=== PATIENT | male | born 1930 | race Caucasian/White ===

== ENCOUNTER 2018-11-14 20:41 | Inpatient (IN) | payer MEDICARE, BC ==
[~2018-11-14] VITALS: Ht 182.9 cm; Wt 86.8 kg
--- NOTE | ~2018-11-14 | HEMODYNAMI ---
PATIENT:NEVILLE BECKETT MEDICAL RECORD: [id number] : [birth year] [id number] ADMISSION DATE: 11/15/18 Generatedon:11/18/20188:55 Patient name: NEVILLE BECKETT Patient #: [id number] : 1930 Date of study: 11/18/2018 Page: Of Hemodynamic Procedure Report Patient Data Patient Demographics Procedure consent was obtained First Name: NEVILLE Gender: Male Last Name: SUJIT : 1930 [facility] Initial: Kristine Age: 88 year(s) Patient #: [id number] Race: SSN: [id number] Additional ID: [id number] Contact details Address: On license of [facility] [address]A OLSON State: [place] City: [place] Zip code: [address] Past Medical History Allergies: No known allergies Admission Admission Data Admission Date: 11/15/2018 Admission Time: 16:38 Room #: D.2119 Height (in.): 72.05 BSA: 2.07 (m2) Height (cm.): 183 BMI: 25.38 (kg/m2) Weight (lbs.): 187.39 Weight (kg.): 85 Lab Results Lab Result Date: 11/18/2018 Lab Result Time: 0:00 Biochemistry Name Units Result Min Max BUN mg/dl 31 --(----)-* 7 18 Creatinine mg/dl 1.2 --(---*)-- 0.6 1.3 eGFR ml/min 61.06613 *-(----)-- 90 120 NONAFRICAN CBC Name Units Result Min Max Hematocrit % 35 *-(----)-- 42 54 Hemoglobin g/dl 12 *-(----)-- 13.5 17.5 Procedure Procedure Types Cath Procedure Diagnostic Procedure [facility] w/Coronaries Sedation Charges Moderate Sedation up to 30 minutes PCI Procedure Coronary Stent Coronary Stent Initial Procedure Description Procedure Date Procedure Date: 11/18/2018 Procedure Start Time: 8:15 Procedure End Time: 8:50 Procedure Staff Name Function Aidan Hay MD Performing Physician Tracy Tejeda RT Monitor Dandy Drummond RT Scrub Helene Humphrey RT Scrub Vik Rodriguez RN Nurse Procedure Data Cath Procedure Fluoroscopy Diagnostic fluoroscopy Total fluoroscopy Time: 8.2 time: 8.2 min min Diagnostic fluoroscopy Total fluoroscopy dose: dose: 1309 mGy 1309 mGy Contrast Material Contrast Material Type Amount (ml) Isovue 300 149 Entry Location Entry Primary Successful Side Size Upsize Upsize Entry Closure Succes sful Closure Location (Fr) 1 (Fr) 2 (Fr) Remarks Device Remarks Femoral Right 5 Fr 6 Fr Exoseal artery Short Estimated blood loss: 10 ml Diagnostic catheters Device Type Used For End Catheter Placement MULTIPACK JL 4.0 5Fr Procedure catheter MULTIPACK 3DRC 5Fr Procedure catheter MULTIPACK Pigtail 5 Fr Procedure catheter Procedure Complications No complications Procedure Medications Medication Administration Route Dosage Oxygen etCO2 Nasal cannula 2 l/min Lidocaine 2% added to field 20 Heparin Flush Bag added to field 2 bags (1000units/500ml NS) 0.9% NaCl I.V. 100 ml/hr Versed I.V. 1 mg Fentanyl I.V. 50 mcg Fentanyl I.V. 50 mcg Heparin Bolus I.V. 8500 units Versed I.V. 1 mg Plavix P.O. 600 mg Hemodynamics Rest BSA: 2.07 (m2) HGB: 12 (g/dl) O2 Consumption: Estimated: 231.02 (ml/min) O2 Cons umption indexed: Estimated:111.6 (ml/min/m) Heart Rate: 66 (bpm) Pressure Samples Time Site Value (mmHg) Purpose Heart Use Rate(bpm) 8:23 LV 170/5,16 Snapshot 80 8:23 LV 163/15,17 Snapshot 77 8:23 AO 187/69(110) Pullback 53 8:23 LV 179/8,25 Pullback 53 Gradients Valve Time Site 1 Site 2 Mean SEP/DFP Peak To Heart Use (mmHg) (sec/min) Peak Rate (mmHg) (bpm) Aortic 8:23 LV AO 0 4 0 53 179/8,25 187/69(110) Calculations Valve P-P Mean Valve Index Valve Source Name Gradient Area Flow (cm2) Aortic 0 0 0 0 Snapshots Pre Cath Intra NCS Post Cath Vital Signs Time Heart Resp SPO2 etCO2 NIBP (mmHg) Rhythm Pain Sedation Rate (ipm) (%) (mmHg) Status Level (bpm) 8:01:27 54 14 93 17.2 177/89(158) NSR 0 (11) 10(A) , No pain 8:05:57 54 13 98 0 183/78(158) NSR 0 (11) 10(A) , No pain 8:10:25 56 13 92 0 158/81(141) NSR 0 (11) 10(A) , No pain 8:14:47 57 12 92 13.4 158/74(130) NSR 0 (11) 10(A) , No pain 8:19:55 56 9 94 10.4 154/81(136) NSR 0 (11) 10(A) , No pain 8:25:08 54 16 93 17.9 173/74(143) NSR 0 (11) 9(A) , No pain 8:30:21 57 10 95 0 170/73(146) NSR 0 (11) 9(A) , No pain 8:34:50 53 10 88 10.4 140/68(129) NSR 0 (11) 9(A) , No pain 8:39:06 53 11 90 15.7 147/76(129) NSR 0 (11) 10(A) , No pain 8:43:13 53 15 92 11.2 135/72(120) NSR 0 (11) 10(A) , No pain 8:48:29 52 29 96 19.4 172/84(151) NSR 0 (11) 10(A) , No pain Medications Time Medication Route Dose Verified Delivered Reason Notes Effectiveness by by 8:03:03 Oxygen etCO2 2 Aidan Buffie used for Nasal l/min Satnam Rodriguez RN procedure cannula 8:06:09 Lidocaine 2% added 20ml Aidan Aidan for local to vial Satnam Hay MD anesthetic field 8:06:20 Heparin Flush added 2 Aidan Aidan used for Bag to bags Satnam Hay MD procedure (1000units/500ml field NS) 8:06:57 0.9% NaCl I.V. 100 Aidan Buffie Per physician ml/hr Satnam Rodriguez RN 8:09:32 Versed I.V. 1 mg Aidan Buffie for sedation Satnam Rodriguez RN 8:09:38 Fentanyl I.V. 50 Aidan Buffie for sedation mcg Satnam Rodriguez RN 8:16:53 Fentanyl I.V. 50 Aidan Buffie for sedation mcg Satnam Rodriguez RN 8:28:51 Heparin Bolus I.V. 8500 Aidan Buffie for verifi ed units Satnam Rodriguez RN anticoagulation with dr hay 8:31:43 Versed I.V. 1 mg Aidan Buffie for sedation Satnam Rodriguez RN 8:51:36 Plavix P.O. 600 Aidan Buffie for mg Satnam Rodriguez RN antiplatelet therapy Procedure Log Time Note 7:05:50 Informed consent obtained and on chart 7:33:06 Signed procedure consent form obtained from patient. 7:33:08 Procedure Status Urgent Heart Cath (IP). 7:33:10 Time tracking: Regular hours (M-F 7:00 - 5:00) 7:33:13 Plan of Care:Hemodynamics will remain stable., Cardiac rhythm will remain stable., Comfort level will be maintained., Respiratory function will remain adequate., Patient/ family verbilizes understanding of procedure., Procedure tolerated without complication., Recovers from procedure without complications.. 7:37:30 Patient Weight : 187.39 lbs 7:37:34 Patient Height : 72.05 inches 7:37:39 Vik Rodriguez RN sent for patient. Start room use. 7:53:05 Patient received from Med II to CCL 1 Alert and oriented. Tansferred to table in Supine position. 7:53:10 Warm blankets applied, and ara hugger turned on for patient comfort. 7:53:10 ECG and BP/O2 sat monitors applied to patient. 7:53:11 Correct patient and procedure confirmed by team. 7:55:00 Patient allergic to No known allergies 7:55:43 Lab Result : BUN 31 mg/dl 7:55:43 Lab Result : Creatinine 1.2 mg/dl 7:55:43 Lab Result : eGFR NONAFRICAN 61.36108 ml/min 7:55:43 Lab Result : Hemoglobin 12 g/dl 7:55:43 Lab Result : Hematocrit 35 % 8:00:16 Vital chart was started 8:00:18 Baseline sample Acquired. 8:00:24 Rhythm: sinus bradycardia 8:00:25 Full Disclosure recording started 8:00:26 Pre-procedure instructions explained to patient. 8:00:26 Pre-op teaching completed and patient verbalized understanding. 8:00:27 Family unavailable. 8:00:29 Patient NPO since Midnight. 8:00:31 Is patient on blood thinner?No 8:00:33 Patient diabetic? Yes. 8:00:34 If diabetic: On Metformin? No 8:00:37 Previous problem with sedation/anesthesia? No ? 8:00:38 Snore? Yes 8:00:39 Sleep apnea? No 8:00:40 Deviated septum? No 8:00:48 Opens mouth fully? No 8:00:49 Sticks out tongue? Yes 8:00:59 Airway obstruction? Yes HX OF LUNG CANCER 8:01:01 Dentures? No ? 8:01:05 Pre procedure: right dorsailis pedis pulse 1+ Palpable, but thready & weak; easily obliterated 8:01:17 Patient pain scale 0/10 ?. 8:01:25 IV patent on arrival in right wrist with 0.9% NaCl at KVO. 8:01:36 IV right wrist D/C'd due to infiltration. 8:01:53 IV started by Vik Rodriguez RN inleft hand with a 22 gauge IV catheter with 0.9% NaCl at KVO. 8:01:55 Lab results completed and on chart. 8:01:58 Right groin area was prepped with chlora-prep and draped in sterile fashion 8:02:01 Alarms reviewed by R. N. 8:02:02 Sharps counted by scrub and verified by R.N. 8:03:03 Oxygen 2 l/min etCO2 Nasal cannula was administered by Vik Rodriguez RN; used for procedure; 8:03:24 Use device set Femoral Dx 8:03:25 ACIST Syringe (82872) opened to sterile field. 8:03:25 Bag Decanter () opened to sterile field. 8:03:27 ACIST Hand Control (36925) opened to sterile field. 8:03:28 ACIST Manifold (85338) opened to sterile field. 8:03:28 Tegaderm 4 x 4 (1626W) opened to sterile field. 8:03:31 Medline Cath Pack ([id number]) opened to sterile field. 8:03:33 DIAGNOSTIC Multipack 5Fr catheter set (HQ0615) opened to sterile field. 8:03:34 SHEATH 5FR Eagan (UMQ230) opened to sterile field. 8:03:34 EMERALD Guide Wire (247-182) opened to sterile field. 8:06:09 Lidocaine 2% 20ml vial added to field was administered by Aidan Hay MD; for local anesthetic; 8:06:20 Heparin Flush Bag (1000units/500ml NS) 2 bags added to field was administered by Aidan Hay MD; used for procedure; 8:06:57 0.9% NaCl 100 ml/hr I.V. was administered by Vik Rodriguez RN; Per physician; 8:07:08 --------ALL STOP TIME OUT------ 8:07:09 Final Timeout: patient, procedure, and site verified with staff and physician. All members of the team are in agreement. 8:07:10 Right groin site verified by team. 8:07:13 Fire Safety Assessment: A--An alcohol-based skin anteseptic being used preoperatively., C--Open oxygen or nitrous oxide is being used., D--An ESU, laser, or fiber-optic light is being used. 8:07:16 Physical assessment completed. ASA score P 2 - A patient with mild systemic disease as per Aidan Hay MD. 8:08:09 2) 60-89 Mildly reduced kidney function, and other findings (as for stage 1) point to kidney disease. 8:08:11 Maximum allowable contrast dose (3.7 X eGFR X 0.75)160 ml. 8:08:14 Sedation plan: IV Moderate Sedation Medication:Versed, Fentanyl 8:09:04 Baseline sample Acquired. 8:09:13 H&P Date Dictated: 11/18/2018 Within 30 days and on chart.. 8:09:32 Versed 1 mg I.V. was administered by Vik Rodriguez RN; for sedation; 8:09:38 Fentanyl 50 mcg I.V. was administered by Vik Rodriguez RN; for sedation; 8:14:51 Zero performed for pressure channel P1 8:14:59 Zero performed for pressure channel P1 8:15:03 Zero performed for pressure channel P1 8:15:15 Procedure started. 8:15:19 Local anesthetic to right femoral artery with Lidocaine 2% by Aidan Hay MD.INITIAL ACCESS ONLY 8:16:23 A 5 Fr sheath was inserted into the Right Femoral artery 8:16:36 A MULTIPACK JL 4.0 5Fr catheter was advanced over the wire and used for Procedure. 8:16:53 Fentanyl 50 mcg I.V. was administered by Vik Rodriguez RN; for sedation; 8:18:44 LCA angiography performed. 8:18:57 Catheter exchanged over wire. 8:19:19 A MULTIPACK 3DRC 5Fr catheter was advanced over the wire and used for Procedure. 8:20:52 RCA angiography performed. 8:20:53 Catheter exchanged over wire. 8:20:57 ACCDominant side:Left 8:21:14 A MULTIPACK Pigtail 5 Fr catheter was advanced over the wire and used for Procedure. 8:21:51 LV gram done using AZERBAIJANI 8:21:54 Injector settings: Ml/sec: 10, Volume: 20, 8:23:36 EF : 35 % 8:23:47 LV hemodynamics recorded. 8:24:31 SHEATH 6FR Eagan (TLK151) opened to sterile field. 8:24:36 GUIDE 6FR XBLAD 3.5 catheter ([id number]) opened to sterile field. 8:24:37 INFLATOR Merit BasixCompak (LC8881) opened to sterile field. 8:24:50 TUBING High Pressure Extension Tubing (Satnam) (SD4987G) opened to sterile field. 8:25:17 Sheath upsized to a 6 Fr Short. 8:25:25 Zero performed for pressure channel P1 8:25:29 Zero performed for pressure channel P1 8:26:31 Zero performed for pressure channel P1 8:27:20 6 Fr XBLAD 3.5 guide catheter was inserted over the wire 8:28:51 Heparin Bolus 8500 units I.V. was administered by Vik Rodriguez RN; for anticoagulation; verified with dr hay 8:30:06 ASAHI PRAMOD BLUE WIRE ADVANCED 8:31:43 Versed 1 mg I.V. was administered by Vik Rodriguez RN; for sedation; 8:36:06 WIRE ADVANCED ACROSS LESION 8:38:06 Inflate balloon Inflation number: 1 A EUPHORA 2.5 x 20 Balloon ([id number]) was prepped and advanced across the Prox CX , then inflated to 10 RAVINDER for 0:00 (min:sec) . 8:38:40 Balloon removed over the wire. 8:42:41 Place stent Inflation Number: 2 A INTEGRITY RX 4.0 x 26 stent ([id number]) was prepped and advanced across the Prox CX 80. The stent was deployed at 14 RAVINDER for 0:00 (min:sec) 0. 8:42:57 Stent catheter was removed intact over wire. 8:42:58 Wire removed. 8:42:58 Guide catheter removed. 8:43:24 EXOSEAL 6Fr (EX600) opened to sterile field. 8:47:17 ACT drawn and resulted at 387 seconds. (normal therapeutic range 180-240 seconds). 8:47:40 Sheath removed intact; hemostasis achieved with Exoseal to the Right Femoral artery. 8:47:42 Procedure ended.(Physican Out) 8:47:55 Fluoroscopy time 08.20 minutes. 8:47:59 Flurop Dose total: 1309 8:47:59 Fluoroscopy dose: 1309 mGy 8:48:04 Dose Area Product 92225 mGy/cm. 8:48:08 Contrast amount:Isovue 300 149ml. 8:48:10 Maximum allowable dose exceeded? No. 8:48:11 Sharps counted by scrub and verified by R.N. 8:48:14 Post-op/insertion site Right Femoral artery dressed using a 4 x 4 and Tegaderm. 8:48:21 Post-procedure physical assessment completed. ASA score P 3 - A patient with severe systemic disease as per Aidan Hay MD. 8:48:28 Post procedure rhythm: sinus bradycardia 8:48:30 Estimated blood loss: 10 ml 8:48:32 Post procedure instruction explained to patient.Patient verbalizes understanding. 8:48:32 Patient needs reinforcement of post procedure teaching. 8:49:41 Procedure type changed to Cath procedure, Diagnostic procedure, LHC, LHC w/Coronaries, Sedation Charges, Moderate Sedation up to 30 minutes, PCI procedure, Coronary Stent, Coronary Stent Initial 8:50:10 Procedure and supply charges have been captured, reviewed, submitted and are correct. 8:50:12 Procedure Complication : No complications 8:50:15 Vital chart was stopped 8:50:15 See physician's report for complete and final results. 8:50:17 Report given to PCU. 8:50:19 Patient transfered to PCU with Bed. 8:50:21 Procedure ended. 8:50:21 Full Disclosure recording stopped 8:50:27 End room use (Document Last) 8:51:36 Plavix 600 mg P.O. was administered by Vik Rodriguez RN; for antiplatelet therapy; Intervention Summary Intervention Notes Time ActionType Lesion and Equipment Action# Pressure Duration Attributes Used 8:38:06 Inflate Prox CX EUPHORA 2.5 1 10 00:00 balloon x 20 Balloon ([id number]) 8:42:41 Place stent Prox CX INTEGRITY RX 2 14 00:00 4.0 x 26 stent ([id number]) Device Usage Item Name Manufacture Quantity Catalog Hospital Part Current Minimal Lot# / Number Charge Number Stock Stock Serial# Code ACIST Acist 1 47633 896186 354539 601166 20 Syringe Medical (19023) Systems Inc Bag Decanter Microtek 1 2001S 809194 27249 498156 5 (2001S) Medical Inc. ACIST Hand Acist 1 73885 760664 159077 840369 5 Control Medical (34351) Systems Inc ACIST Acist 1 75936 532654 462291 833644 5 Manifold Medical (22645) Systems Inc Tegaderm 4 x 3M 1 1626W 962040 795140 786393 5 4 (1626W) Medline Cath Medline 1 [id number] 037012 38842 570865 5 Pack ([id number]) DIAGNOSTIC Cardinal 1 DJ5163 531656 38651 844270 30 Multipack Health 5Fr catheter set (GO1178) SHEATH 5FR Terumo 1 WAP295 713233 788296 577687 5 Eagan (ZSQ177) EMERALD Cardinal 1 502-455 158874 235238 677157 5 Guide Wire Health (502455) MULTIPACK JL Cardinal 1 459943 5 4.0 5Fr Health catheter MULTIPACK Cardinal 1 863873 5 3DRC 5Fr Health catheter MULTIPACK Cardinal 1 614445 5 Pigtail 5 Fr Health catheter SHEATH 6FR Terumo 1 WTU396 833379 120131 288709 40 Eagan (NEX942) GUIDE 6FR Cardinal 1 67952659 785596 874905 946199 10 XBLAD 3.5 Health catheter (82308465) INFLATOR Merit 1 DH1674 003830 432699 775561 15 Merit Medical BasixCompak (BJ0412) TUBING High Merit 1 [id number] 424089 33992 000189 10 Pressure Medical Extension Tubing (Hay) (LO7027S) EUPHORA 2.5 Medtronic 1 [id number] 572843 233335 725090 5 [id number] x 20 Balloon (XIC4541E) INTEGRITY RX Medtronic 1 [id number] 838553 577124 559123 5 [id number] 4.0 x 26 stent ([id number]) EXOSEAL 6Fr Cardinal 1 EX600 934944 579287 955280 10 (EX600) Health Signature Audit [place] Stage Time Signature Unsigned Intra-Procedure 11/18/2018 Tracy Tejeda 8:54:57 AM RT(R) Signatures Performing Physician : Signature : Aidan Hay MD Date : Time : Monitor : Tracy Tejeda Signature : RT Date : Time : Nurse : Vik Rodriguez RN Signature : Date : Time : [facility] [address] [address]
[2018-11-14 21:00] VITALS: BP 157/89
[2018-11-14 22:08] LABS: BASOPHILS 0 % (0-2); EOSINOPHILS 0 % (0-7); HEMATOCRIT 34.7 % (42.0-54.0); HEMOGLOBIN 11.8 g/dL (13.5-17.5); IMMATURE GRANULOCYTES 0.6 % (0-5); LYMPHOCYTES 8.4 % (15-50); MCH 30.3 pg (26.0-34.0); MEAN PLATELET VOLUME 9.9 fL (7.4-10.4); MONOCYTES 12.3 % (2-11); NEUTROPHILS 78.7 % (40-80); PLATELET COUNT 219 10x3/uL (130-400); RDW 14.7 % (11.5-14.5); WBC 11.1 10x3/uL (4.8-10.8)
[2018-11-14 22:15] LABS: APTT 34.5 SECONDS (22.8-39.4); INR 1.06 (0.85-1.17); PROTIME 13.3 SECONDS (11.6-15.0)
[2018-11-14 22:30] LABS: ALBUMIN 2.9 g/dL (3.4-5.0); ALKALINE PHOSPHATASE 115 U/L (46-116); ALT (SGPT) 39 U/L (10-68); BILIRUBIN - TOTAL 0.44 mg/dL (0.2-1.3); CALC OSMOLALITY 294 mosm/kg (275-300); CALCIUM 8.2 mg/dL (8.5-10.1); CARBON DIOXIDE 23.7 mmol/L (21.0-32.0); CHLORIDE - SERUM 105 mmol/L (98-107); CREATININE - SERUM 1.4 mg/dL (0.6-1.3); GLUCOSE 206 mg/dL (74-106); PROTEIN - SERUM 5.5 g/dL (6.4-8.2); SODIUM 138 mmol/L (136-145); UREA NITROGEN 50 mg/dL (7-18); eGFR NON AFRICAN AMERICAN 51 mL/min (90-120)
[2018-11-14 22:39] LABS: CKMB 6.6 U/L (0.0-3.6); CREATINE KINASE 505 UL (21-232); MAGNESIUM - SERUM 1.9 mg/dL (1.8-2.4)
[2018-11-14 23:27] VITALS: BP 189/74; BMI 26.4
[2018-11-15] VITALS (7 sets, daily range): BP systolic 167–210; BP diastolic 59–127; Ht 182.9 cm; Wt 86.8 kg
--- NOTE | 2018-11-15 00:04 | NUR ---
ARRIVED TO FLOOR ON STRETCHER. ALERT AND ORIENTED X4. UNABLE TO STAND D/T C/O BEING SORE FROM A FALL EARLIER TODAY. BANDAIDE TO EACH KNEE. REPORTED INJECTIONS TRECIEVED YESTERDAY. UNABLE TO GIVE MEDICATION HISTORY. [facility] IV TO LEFT AC SL.. HEARING AIDE TO RIGHT EAR STATED HE LEFT THE OTHER ONE AT HOME. DENIES ANY NEEDS AT THIS TIME.
[2018-11-15 05:36] LABS: BASOPHILS 0 % (0-2); EOSINOPHILS 0.9 % (0-7); HEMATOCRIT 33.6 % (42.0-54.0); HEMOGLOBIN 11.4 g/dL (13.5-17.5); IMMATURE GRANULOCYTES 0.4 % (0-5); LYMPHOCYTES 11.3 % (15-50); MCHC 33.9 g/dL (31.0-37.0); MCV 88.4 fL (80.0-100.0); MEAN PLATELET VOLUME 9.2 fL (7.4-10.4); MONOCYTES 15.9 % (2-11); NEUTROPHILS 71.5 % (40-80); RDW 14.7 % (11.5-14.5)
[2018-11-15 05:55] LABS: PLATELET COUNT 171 10x3/uL (130-400); WBC 6.7 10x3/uL (4.8-10.8)
[2018-11-15 06:35] LABS: ANION GAP 13.7 mmol/L (8-16); CALCIUM 8.3 mg/dL (8.5-10.1); CARBON DIOXIDE 22.7 mmol/L (21.0-32.0); CREATININE - SERUM 1.4 mg/dL (0.6-1.3); MAGNESIUM - SERUM 1.9 mg/dL (1.8-2.4); PHOSPHOROUS 2.8 mg/dL (2.5-4.9); POTASSIUM - SERUM 4.4 mmol/L (3.5-5.1)
[2018-11-15 06:41] LABS: TROPONIN-I 0.086 ng/mL (0.000-0.060)
--- NOTE | 2018-11-15 09:54 | NUR ---
ASSESSMENT COMPLETED. ALERT AND ORIENTED. TELEMERTY SHOWS SB 55. PT DENIES ANY NEEDS. PT HAS A BRUISE TO HIS LEFT ELBO. HAS BAD KNEES. IV TO LEFT AC. SR UP WITH CALL LIGHT IN REACH
[2018-11-15 12:54] LABS: % SATURATION 26 % (15-55); IRON 73 ug/dl (35-150); TOTAL IRON BIND CAPACITY 272 ug/dl (260-445); UNSAT IRON BIND CAPACITY 199 ug/dl (150-375)
[2018-11-15 13:07] LABS: CKMB 5.6 U/L (0.0-3.6); CREATINE KINASE 608 UL (21-232)
--- NOTE | 2018-11-15 17:30 | MORECARE ---
CASE MANAGEMENT DISCHARGE SUMMARY PATIENT: NEVILLE BECKETT UNIT: [id number] ADM DATE: 11/15/18 AGE: 88 : [birth year] SEX: M ROOM/BED: D.6781 AUTHOR: ESTELLE DODGE PHYSICIAN: REFERRING PHYSICIAN: HANNA GARCIA MD DATE OF SERVICE: 11/15/18 Discharge Plan Patient Name: NEVILLE BECKETT Facility: [facility]:[place] : 1930 Planned Disposition: Nursing Home Facility Anticipated Discharge Date: 11/16/18 Discharge Date: Expected LOS: 1 Initial Reviewer: [email or web address] Initial Review Date: 11/15/2018 Generated: 11/15/18 6:30 pm Comments DCP- Discharge Planning Updated by [email or web address]: Tony Castillo on 11/15/18 4:[address] Patient Name: NEVILLE BECKETT Admission Status: ER Accout number: [id number] Admission Date: 11-15-2018 : 1930 Admission Diagnosis: Attending: HANNA GARCIA Current LOS: 1 Anticipated DC Date: 11-16-2018 Planned Disposition: Nursing Home Facility Primary Insurance: [employer] ADMINISTRATION PLANNED EXTERNAL PROVIDER: [facility], MEDICARE REHAB BED Discharge Planning Comments: CM MET WITH PT IN ROOM TO DISCUSS DISCHARGE PLANNING AND NEEDS. PT REPORTS LIVING AT [facility]. THEY ASSIST WITH BATH, MEDICATION AND MEAL PREPARATION. PT HAS WALKER AND WHEELCHAIR WITH NO MEDICAL EQUIPMENT PROVIDER PREFERENCE. PT HAS NO OUTSIDE SERVICES ASSISTING IN THE APARTMENT. CM DISCUSSED AVAILABILITY OF HOME HEALTH, REHAB SERVICES AND MEDICAL EQUIPMENT. PT HAS DISCUSSED REHAB WITH HIS SON, JR JOSE. PT WANTS REHAB AND IS DEPENDING ON JOSE TO TELL HIM WHERE. PT THINKS IT IS [facility]. CHOICE SIGNED FOR [facility]. IMPORTANT MESSAGE FROM MEDICARE PROVIDED AND EXPLAINED. CM MET JOSE CANELA IN THE [place], DISCUSSED REHAB SERVICES, LOCATIONS AND PROVIDERS. JOSE CHOSE THE [facility]. CHOICE SIGNED. CM NOTIFIED [facility] OF THE [facility] OF REFERRAL AT [phone]. CM FAXED REFERRAL TO THE [facility] VIA [facility] AT [phone]. CM WAITING ADMISSION DETERMINATION FROM [facility]. Explosive Ordnance Handler: Tony Castillo DCPIA - Discharge Planning Initial Assessment Updated by [email or web address]: Tony Castillo on 11/15/18 5:25 pm * Is the patient Alert and Oriented? Yes * How many steps to enter\exit or inside your home? NONE * PCP [facility] [place] * [facility] * Preadmission Environment Assisted Living * Facility Name [facility] * ADLs Partial Dependent * Partial ADLs (Assistance needed) Bathing Medication Management * Equipment Walker Wheelchair * Other Equipment NO MEDICAL EQUIPMENT PROVIDER PREFERENCE * List name and contact numbers for known caregivers / representatives who currently or will assist patient after discharge: JOSE BECKETT JR. [phone] * Verbal permission to speak to the caregivers and representatives has been obtained from the patient. Yes * Community resources currently utilized None * Please name any agencies selected above. NONE * Additional services required to return to the preadmission environment? Yes * Can the patient safely return to the preadmission environment? Yes * Has this patient been hospitalized within the prior 30 days at any hospital? No External Providers External Provider: [facility] Next Contact Date: 11/15/2018 Service Request Date: Service Type: Resolution: Reviewer: Comments: Coverage Notice Reviewer: [email or web address] Luis Alfredo Castillo Notice Issued Date-Time: 11/15/2018 15:50 Notice Type: IM Discharge Notice Notice Delivered To: Patient Relationship to Patient: Retail Department Supervisor Name: Delivery Method: HAND - Hand Delivered Ev Days: Prior Verbal Notification: Recipient Understood Notice: Yes Recipient Signature: Yes Med Rec Note Co-signed by Attending: Coverage Notice Comment: Reviewer: [email or web address] Castillo Notice Issued Date-Time: 11/15/2018 15:50 Notice Type: IM Discharge Notice Notice Delivered To: Patient Relationship to Patient: Retail Department Supervisor Name: Delivery Method: HAND - Hand Delivered Ev Days: Prior Verbal Notification: Recipient Understood Notice: Yes Recipient Signature: Yes Med Rec Note Co-signed by Attending: Coverage Notice Comment: [facility] [place] Reviewer: [email or web address] Luis Alfredo Castillo Notice Issued Date-Time: 11/15/2018 15:55 Notice Type: Patient Choice Letter Notice Delivered To: Family Member Relationship to Patient: Son Retail Department Supervisor Name: JR Delivery Method: HAND - Hand Delivered Ev Days: Prior Verbal Notification: Recipient Understood Notice: Yes Recipient Signature: Yes Med Rec Note Co-signed by Attending: Coverage Notice Comment: [facility] Patient Name: NEVILLE BECKETT Page 40052 at 1730 All edits/amendments must be made on the electronic document DICTATION DATE: 11/15/181728 PROCESS CHEMIST: VICKY 11/15/181728 RPT#: [id number] DC DATE: STATUS: ADM IN [facility] [address] [place] [address] END OF REPORT
[2018-11-15 17:53] LABS: APPEARANCE CLEAR (CLEAR); BILIRUBIN NEGATIVE (NEGATIVE); COLOR YELLOW (YELLOW); GLUCOSE NEGATIVE (NEGATIVE); KETONE NEGATIVE (NEGATIVE); NITRITE NEGATIVE (NEGATIVE); PROTEIN TRACE mg/dL (NEGATIVE); UROBILINOGEN NORMAL (NORMAL)
[2018-11-15 17:58] LABS: RED CELLS - URINE 0-5 /hpf (0-5); WHITE CELLS - URINE OCC /hpf (0-5)
--- NOTE | 2018-11-15 18:40 | NUR ---
LYING QUIETLY. NO NEEDS NOTED. SR UP WITH CALL LIGHT IN REACH
[2018-11-15 19:12] LABS: CKMB 7.2 U/L (0.0-3.6); TROPONIN-I 0.055 ng/mL (0.000-0.060)
[2018-11-15 19:21] LABS: CREATINE KINASE 769 UL (21-232)
--- NOTE | 2018-11-15 19:22 | NUR ---
RECIEVED UP IN BED WITH EYES OPEN. ALERT AND ORIENTED X4. VERY NIKOLSKI AND WEARS HEARING AIDE TO RIGHT EAR. DOES NOT HAVE LEFT EAR HEARING AIDE HERE. IV TO LEFT AC SL.. TELEMETRY IN PLACE. USES URINAL. DENIES ANY NEEDS AT THIS TIME.
--- NOTE | 2018-11-15 21:14 | NUR ---
ORTHOSTATIC B/P SITTING 174/108, STANDING 166/127 AND LYING 218/104. NOTIFIED KAREN THAKUR WITH NEW ORDER FOR APRESOLINE 10 MG IV . RECHECKED LYING B/P 199/94 GAVE APRESOLINE AND WILL RECHECK, SEVERAL ATTEMOTS MADE TO CALL ASSISTED LIVING WITH NO ANSWER. ALSO ATTEMPTED TO CALL SON AND LEFT MSG. AWAITING CALL BACK. WILL ATTEMPT TO CALL [facility] FOR MEDICATION LIST.
[2018-11-15] MEDS ORDERED: ALBUTEROL SULF8.5 GM INH (22:59)
[2018-11-15] MEDS ORDERED: LEVO-T25 MCG PO (23:00)
[2018-11-15] MEDS ORDERED: LISINOPRIL2.5 MG PO (23:01)
[2018-11-15] MEDS ORDERED: METOPROLOL TART50 MG PO (23:02)
[2018-11-15] MEDS ORDERED: LIPITOR20 MG PO (23:02)
[2018-11-15] MEDS ORDERED: ZOFRAN ODT4 MG/UDTAB PO (23:06)
[2018-11-15] MEDS ORDERED: TUMS X-STR300 MG PO (23:07)
[2018-11-15] MEDS ORDERED: ALLER-CHLOR4 MG PO (23:08)
[2018-11-15] MEDS ORDERED: SYMBICORT 16010.2 GM INH (23:09)
[2018-11-15] MEDS ORDERED: VITAMIN D31000 UNI2 PO (23:09)
[2018-11-15] MEDS ORDERED: SYSTANE NIGHTT3.5 GM EACH EYE (23:10)
[2018-11-15] MEDS ORDERED: CARDIZEM CD180 MG PO (23:11)
[2018-11-15] MEDS ORDERED: GLIPIZIDE10 MG PO (23:12)
[2018-11-15] MEDS ORDERED: EX-LAX MAXIMUM25 MG PO (23:13)
[2018-11-15] MEDS ORDERED: NOVOLOG100 UNIT/1 SC (23:16)
[2018-11-16 00:10] VITALS: BP 183/97
[2018-11-16 01:49] LABS: CKMB 9.1 U/L (0.0-3.6)
[2018-11-16 01:50] LABS: CREATINE KINASE 1265 UL (21-232); TROPONIN-I 0.122 ng/mL (0.000-0.060)
--- NOTE | 2018-11-16 02:15 | NUR ---
ELEVATED CARDIAC ENZYMES REPORTED TO DR. JOSEPH WITH NO NEW ORDERS.
[2018-11-16 04:00] VITALS: BP 120/84; BP 155/84
[2018-11-16 06:27] LABS: HEMATOCRIT 32.8 % (42.0-54.0); HEMOGLOBIN 11.2 g/dL (13.5-17.5); MCHC 34.1 g/dL (31.0-37.0); MCV 87.9 fL (80.0-100.0); PLATELET COUNT 196 10x3/uL (130-400); RBC 3.73 10x6/uL (4.20-6.10); RDW 14.6 % (11.5-14.5); WBC 6.7 10x3/uL (4.8-10.8)
[2018-11-16 06:46] LABS: CALC OSMOLALITY 285 mosm/kg (275-300); CHLORIDE - SERUM 106 mmol/L (98-107); GLUCOSE 203 mg/dL (74-106); POTASSIUM - SERUM 4.1 mmol/L (3.5-5.1); SODIUM 137 mmol/L (136-145); UREA NITROGEN 30 mg/dL (7-18); eGFR NON AFRICAN AMERICAN 75 mL/min (90-120)
[2018-11-16 09:21] VITALS: BP 161/78
[2018-11-16 09:35] LABS: EOSINOPHILS 4 % (0-7); LYMPHOCYTES 12 % (15-50); MONOCYTES 13 % (2-11); NEUTROPHILS 71 % (40-80); PLATELET ESTIMATE NORMAL
--- NOTE | 2018-11-16 13:11 | EC ---
PATIENT:NEVILLE BECKETT DATE OF SERVICE: 11/14/18 SEX: M MEDICAL RECORD: [id number] DATE OF : [birth year] LOCATION:D.M2 D.211 AGE OF PATIENT: 88 ADMISSION DATE: 11/15/18 REFERRING PHYSICIAN: INTERPRETING PHYSICIAN: TAYLOR DON MD ECHOCARDIOGRAM REPORT ECHO CHARGES 4 ECHO COMPLETE Date: 11/15/18 CLINICAL DIAGNOSIS: SYNCOPE ECHOCARDIOGRAPHIC MEASUREMENTS (adult normal given) AC root (d.<3.7cm) 3.4 cm LV Septum d (<1.2 cm> 1.2 cm Valve Excursion 1.6 cm LV Septum (systole) 1.4 cm Left Atria (s.<4.0cm> 3.9 cm LVPW d(<1.2cm) 1.6 cm RV (d.<2.3cm) 3.8 cm LVPW (sytole) 1.8 cm LV diastole(<5.6CM) 5.4 cm MV E-F(>70mm/sec) cm LV systole 4.2 cm LVOT Diameter 1.5 cm MV exc.(>10mm) cm Est.ejection fraction (50-75%) % DOPPLER: LVIT cm/sec A 123 cm/sec E 106 cm/sec LA cm/sec RVSP 18 mmHg LVOT 147 cm/sec AOP1/2T m/s Asc. Ao 173 cm/sec RVOT 95 cm/sec RA cm/sec PA 18 cm/sec AV Gradient Peak 12.01mmHg AV Mean 2.10 mmHg AV Area 1.8 cm MV Gradient Peak 7.93 mmHg MV Mean 3.30 mmHg MV Area cm COMMENTS: Food Service Assistant: 2 CARRIE ROSS Platinumsmith: 3 Dr. Ko TAPE# PACS Pericardial Effusion N DATE OF SERVICE: Adequate 2-D echo, color-flow and spectral Doppler, and M-mode. Borderline LVH. LV internal dimension is normal. Wall motion is normal. EF is greater than or equal to 55%. Aortic valve sclerosis without stenosis by Doppler interrogation. Left atrium is normal. Mitral valve shows no prolapse. Trace MR. Right-sided chambers are grossly normal. Trace TR. TRANSINT:[id number] Voice Confirmation ID: [id number] DOCUMENT ID: [id number] ECHOCARDIOGRAM REPORT [id number] NEVILLE BECKETT TAYLOR DON MD at 1311 CC: [id number] DICTATION DATE: 11/15/18 1514 MANAGER ONLINE: 11/15/18 1556 ADM IN [place] [id number] [place] [id number]
[2018-11-16 13:54] VITALS: BP 125/80
--- NOTE | 2018-11-16 17:41 | MORECARE ---
CASE MANAGEMENT DISCHARGE SUMMARY PATIENT: NEVILLE BECKETT UNIT: [id number] ADM DATE: 11/15/18 AGE: 88 : [birth year] SEX: M ROOM/BED: D.5536 AUTHOR: ESTELLE DODGE PHYSICIAN: REFERRING PHYSICIAN: HANNA GARCIA MD DATE OF SERVICE: 11/16/18 Discharge Plan Patient Name: NEVILLE BECKETT Facility: [facility]:[place] : 1930 Planned Disposition: Inpatient Rehab Anticipated Discharge Date: 11/17/18 Discharge Date: Expected LOS: 2 Initial Reviewer: [id number] Initial Review Date: 11/15/2018 Generated: 11/16/18 6:40 pm Comments DCP- Discharge Planning Updated by [id number]: Tony Castillo on 11/15/18 4:[address] Patient Name: NEVILLE BECKETT Admission Status: ER Accout number: [id number] Admission Date: 11-15-2018 : 1930 Admission Diagnosis: Attending: HANNA GARCIA Current LOS: 1 Anticipated DC Date: 11-16-2018 Planned Disposition: Alf Facility Primary Insurance: [employer] PLANNED EXTERNAL PROVIDER: [facility], MEDICARE REHAB BED Discharge Planning Comments: CM MET WITH PT IN ROOM TO DISCUSS DISCHARGE PLANNING AND NEEDS. PT REPORTS LIVING AT [facility]. THEY ASSIST WITH BATH, MEDICATION AND MEAL PREPARATION. PT HAS WALKER AND WHEELCHAIR WITH NO MEDICAL EQUIPMENT PROVIDER PREFERENCE. PT HAS NO OUTSIDE SERVICES ASSISTING IN THE APARTMENT. CM DISCUSSED AVAILABILITY OF HOME HEALTH, REHAB SERVICES AND MEDICAL EQUIPMENT. PT HAS DISCUSSED REHAB WITH HIS SON, JR JOSE. PT WANTS REHAB AND IS DEPENDING ON JOSE TO TELL HIM WHERE. PT THINKS IT IS [facility]. CHOICE SIGNED FOR [facility]. IMPORTANT MESSAGE FROM MEDICARE PROVIDED AND EXPLAINED. CM MET JOSE CANELA IN [place], DISCUSSED REHAB SERVICES, LOCATIONS AND PROVIDERS. JOSE CHOSE [facility]. CHOICE SIGNED. CM NOTIFIED MAYO OF [facility] OF REFERRAL AT [phone]. CM FAXED REFERRAL TO [facility] VIA MAYO AT [phone]. CM WAITING ADMISSION DETERMINATION FROM [facility]. Psychologist Research Assistant: Tony Castillo DCPIA - Discharge Planning Initial Assessment Updated by [id number]: Tony Castillo on 11/15/18 5:25 pm * Is the patient Alert and Oriented? Yes * How many steps to enter\exit or inside your home? NONE * PCP [facility] [place] * [facility] * Preadmission Environment Assisted Living * Facility Name [facility] * ADLs Partial Dependent * Partial ADLs (Assistance needed) Bathing Medication Management * Equipment Walker Wheelchair * Other Equipment NO MEDICAL EQUIPMENT PROVIDER PREFERENCE * List name and contact numbers for known caregivers / representatives who currently or will assist patient after discharge: JOSE BECKETT JR. [phone] * Verbal permission to speak to the caregivers and representatives has been obtained from the patient. Yes * Community resources currently utilized None * Please name any agencies selected above. NONE * Additional services required to return to the preadmission environment? Yes * Can the patient safely return to the preadmission environment? Yes * Has this patient been hospitalized within the prior 30 days at any hospital? No Coverage Notice Reviewer: [id number] Castillo Notice Issued Date-Time: 11/15/2018 15:50 Notice Type: IM Discharge Notice Notice Delivered To: Patient Relationship to Patient: Meter Setter Name: Delivery Method: HAND - Hand Delivered Ev Days: Prior Verbal Notification: Recipient Understood Notice: Yes Recipient Signature: Yes Med Rec Note Co-signed by Attending: Coverage Notice Comment: Reviewer: AMINAH Castillo Notice Issued Date-Time: 11/15/2018 15:50 Notice Type: IM Discharge Notice Notice Delivered To: Patient Relationship to Patient: Meter Setter Name: Delivery Method: HAND - Hand Delivered Ev Days: Prior Verbal Notification: Recipient Understood Notice: Yes Recipient Signature: Yes Med Rec Note Co-signed by Attending: Coverage Notice Comment: [facility] IN [place] Reviewer: [id number] Luis Alfredo Castillo Notice Issued Date-Time: 11/15/2018 15:55 Notice Type: Patient Choice Letter Notice Delivered To: Family Member Relationship to Patient: Son Meter Setter Name: JR Delivery Method: HAND - Hand Delivered Ev Days: Prior Verbal Notification: Recipient Understood Notice: Yes Recipient Signature: Yes Med Rec Note Co-signed by Attending: Coverage Notice Comment: [facility] Last DP export: 11/15/18 4:30 p Patient Name: NEVILLE BECKETT Page 54586 at 1741 All edits/amendments must be made on the electronic document DICTATION DATE: 11/16/181739 SURFACE WATER MANAGER: VICKY 11/16/181739 RPT#: [id number] DC DATE: STATUS: ADM IN [facility] [address] [place] [address] END OF REPORT
--- NOTE | 2018-11-16 17:49 | MORECARE ---
CASE MANAGEMENT DISCHARGE SUMMARY PATIENT: NEVILLE BECKETT UNIT: [id number] ADM DATE: 11/15/18 AGE: 88 : [birth year] SEX: M ROOM/BED: D.0180 AUTHOR: ESTELLE DODGE PHYSICIAN: REFERRING PHYSICIAN: HANNA GARCIA MD DATE OF SERVICE: 11/16/18 Discharge Plan Patient Name: NEVILLE BECKETT Facility: [facility]:[place] : 1930 Planned Disposition: Inpatient Rehab Anticipated Discharge Date: 11/17/18 Discharge Date: Expected LOS: 2 Initial Reviewer: [id number] Initial Review Date: 11/15/2018 Generated: 11/16/18 6:48 pm Comments DCP- Discharge Planning Updated by [email or web address]: Tony Castillo on 11/16/18 4:[address] Patient Name: NEVILLE BECKETT Encounter No: [id number] : 1930 Primary Insurance: [employer] Anticipated DC Date: 11-17-2018 Planned Disposition: Inpatient Rehab External Planned Provider: [facility] DCP follow-up note: CM RECEIVED REQUEST TO SPEAK TO PT AND SON IN ROOM. PT'S SON REPORTS THEY HAVE DECIDED NOT TO DO REHAB AT [facility] AND WANT REFERRAL SENT TO [facility]. CM CALLED AND CANCELLED THE [facility] CM FAXED REFERRAL TO [facility] AT [phone]. CM WAITING ADMISSION DETERMINATION FROM [facility]. LORENA Emery DCP- Discharge Planning Updated by [id number]: Tony Castillo on 11/15/18 4:[address] Patient Name: NEVILLE BECKETT Admission Status: ER Accout number: [id number] Admission Date: 11-15-2018 : 1930 Admission Diagnosis: Attending: HANNA GARCIA Current LOS: 1 Anticipated DC Date: 11-16-2018 Planned Disposition: Senior Care Facility Primary Insurance: [employer] PLANNED EXTERNAL PROVIDER: [facility], MEDICARE REHAB BED Discharge Planning Comments: CM MET WITH PT IN ROOM TO DISCUSS DISCHARGE PLANNING AND NEEDS. PT REPORTS LIVING AT [facility] IN [place]. THEY ASSIST WITH BATH, MEDICATION AND MEAL PREPARATION. PT HAS WALKER AND WHEELCHAIR WITH NO MEDICAL EQUIPMENT PROVIDER PREFERENCE. PT HAS NO OUTSIDE SERVICES ASSISTING IN THE APARTMENT. CM DISCUSSED AVAILABILITY OF HOME HEALTH, REHAB SERVICES AND MEDICAL EQUIPMENT. PT HAS DISCUSSED REHAB WITH HIS SON, JR JOSE. PT WANTS REHAB AND IS DEPENDING ON JOSE TO TELL HIM WHERE. PT THINKS IT IS [facility]. CHOICE SIGNED FOR [facility]. IMPORTANT MESSAGE FROM MEDICARE PROVIDED AND EXPLAINED. CM MET JOSE CANELA IN THE [place], DISCUSSED REHAB SERVICES, LOCATIONS AND PROVIDERS. JOSE CHOSE [facility]. CHOICE SIGNED. CM NOTIFIED MAYO OF THE [facility] OF REFERRAL AT [phone]. CM FAXED REFERRAL TO [facility] VIA MAYO AT [phone]. CM WAITING ADMISSION DETERMINATION FROM [facility]. Geometry Tutor: Tony Castillo DCPIA - Discharge Planning Initial Assessment Updated by [id number]: Tony Castillo on 11/15/18 5:25 pm * Is the patient Alert and Oriented? Yes * How many steps to enter\exit or inside your home? NONE * [place]CP [facility] [place] [facility] * Preadmission Environment Assisted Living * Facility Name [facility] [place] * ADLs Partial Dependent * Partial ADLs (Assistance needed) Bathing Medication Management * Equipment Walker Wheelchair * Other Equipment NO MEDICAL EQUIPMENT PROVIDER PREFERENCE * List name and contact numbers for known caregivers / representatives who currently or will assist patient after discharge: JOSE BECKETT JR. [phone] * Verbal permission to speak to the caregivers and representatives has been obtained from the patient. Yes * Community resources currently utilized None * Please name any agencies selected above. NONE * Additional services required to return to the preadmission environment? Yes * Can the patient safely return to the preadmission environment? Yes * Has this patient been hospitalized within the prior 30 days at any hospital? No External Providers External Provider: OTHER-OTHER Next Contact Date: 11/16/2018 Service Request Date: Service Type: Resolution: Reviewer: Comments: Coverage Notice Reviewer: [id number] - Tony Castillo Notice Issued Date-Time: 11/15/2018 15:55 Notice Type: Patient Choice Letter Notice Delivered To: Family Member Relationship to Patient: Son Telephone Service Representative Name: Delivery Method: HAND - Hand Delivered Ev Days: Prior Verbal Notification: Recipient Understood Notice: Yes Recipient Signature: Yes Med Rec Note Co-signed by Attending: Coverage Notice Comment: FREIDA MERARY Reviewer: [id number] Luis Alfredo Castillo Notice Issued Date-Time: 11/15/2018 15:50 Notice Type: IM Discharge Notice Notice Delivered To: Patient Relationship to Patient: Telephone Service Representative Name: Delivery Method: HAND - Hand Delivered Ev Days: Prior Verbal Notification: Recipient Understood Notice: Yes Recipient Signature: Yes Med Rec Note Co-signed by Attending: Coverage Notice Comment: [facility] IN [place] Reviewer: [id number] Luis Alfredo Castillo Notice Issued Date-Time: 11/15/2018 15:50 Notice Type: IM Discharge Notice Notice Delivered To: Patient Relationship to Patient: Telephone Service Representative Name: Delivery Method: HAND - Hand Delivered Ev Days: Prior Verbal Notification: Recipient Understood Notice: Yes Recipient Signature: Yes Med Rec Note Co-signed by Attending: Coverage Notice Comment: Last DP export: 11/16/18 4:41 p Patient Name: NEVILLE BECKETT Page 34421 at 1749 All edits/amendments must be made on the electronic document DICTATION DATE: 11/16/181747 PALAEONTOLOGIST: VICKY 11/16/181747 RPT#: [id number] MT DATE: STATUS: ADM IN [facility] [address] [place] [address] END OF REPORT
[2018-11-16 18:36] VITALS: BP 174/75
[2018-11-16 20:00] VITALS: BP 140/55
[2018-11-17] VITALS (7 sets, daily range): BP systolic 134–199; BP diastolic 50–94
--- NOTE | 2018-11-17 05:26 | NUR ---
ORTHROSTATIC BP: LAYING 135/59 O2 94 RA HR 63 SITTING: BP 164/75 O2 95 RA HR 67 PATIENT REFUSED TO STAND. HE STATES THAT HIS KNEES CAN NOT HANDLE IT
--- NOTE | 2018-11-17 09:12 | MORECARE ---
CASE MANAGEMENT DISCHARGE SUMMARY PATIENT: NEVILLE BECKETT UNIT: [id number] ADM DATE: 11/15/18 AGE: 88 : [birth year] SEX: M ROOM/BED: D.8994 AUTHOR: ESTELLE DODGE PHYSICIAN: REFERRING PHYSICIAN: HANNA GARCIA MD DATE OF SERVICE: 11/17/18 Discharge Plan Patient Name: NEVILLE BECKETT Facility: [facility]:[place] : 1930 Planned Disposition: Inpatient Rehab Anticipated Discharge Date: 11/17/18 Discharge Date: Expected LOS: 2 Initial Reviewer: [id number] Initial Review Date: 11/15/2018 Generated: 11/17/18 10:11 am Comments DCP- Discharge Planning Updated by [email or web address]: Tony Castillo on 11/16/18 4:[address] Patient Name: NEVILLE BECKETT Encounter No: [id number] : 1930 Primary Insurance: [employer] [place] [employer] ADMINISTRATION Anticipated DC Date: 11-17-2018 Planned Disposition: Inpatient Rehab External Planned Provider: [facility] DCP follow-up note: CM RECEIVED REQUEST TO SPEAK TO PT AND SON IN ROOM. PT'S SON REPORTS THEY HAVE DECIDED NOT TO DO REHAB AT THE [facility] AND WANT REFERRAL SENT TO [facility]. CM CALLED AND CANCELLED THE [facility] CM FAXED REFERRAL TO [facility] AT [phone]. CM WAITING ADMISSION DETERMINATION FROM [facility]. LORENA Emery DCP- Discharge Planning Updated by [id number]: Tony Castillo on 11/15/18 4:[address] Patient Name: NEVILLE BECKETT Admission Status: ER Accout number: [id number] Admission Date: 11-15-2018 : 1930 Admission Diagnosis: Attending: HANNA GARCIA Current LOS: 1 Anticipated DC Date: 11-16-2018 Planned Disposition: Half-Way Facility Primary Insurance: [employer] PLANNED EXTERNAL PROVIDER: [facility], MEDICARE REHAB BED Discharge Planning Comments: CM MET WITH PT IN ROOM TO DISCUSS DISCHARGE PLANNING AND NEEDS. PT REPORTS LIVING AT [facility] IN [place]. THEY ASSIST WITH BATH, MEDICATION AND MEAL PREPARATION. PT HAS WALKER AND WHEELCHAIR WITH NO MEDICAL EQUIPMENT PROVIDER PREFERENCE. PT HAS NO OUTSIDE SERVICES ASSISTING IN THE APARTMENT. CM DISCUSSED AVAILABILITY OF HOME HEALTH, REHAB SERVICES AND MEDICAL EQUIPMENT. PT HAS DISCUSSED REHAB WITH HIS SON, JR JOSE. PT WANTS REHAB AND IS DEPENDING ON JOSE TO TELL HIM WHERE. PT THINKS IT IS [facility] [place]. CHOICE SIGNED FOR [facility]. IMPORTANT MESSAGE FROM MEDICARE PROVIDED AND EXPLAINED. CM MET JOSE CANELA IN THE [place], DISCUSSED REHAB SERVICES, LOCATIONS AND PROVIDERS. JOSE CHOSE THE [facility]. CHOICE SIGNED. CM NOTIFIED MAYO OF THE [facility] OF REFERRAL AT [phone]. CM FAXED REFERRAL TO THE [facility] VIA MAYO AT [phone]. CM WAITING ADMISSION DETERMINATION FROM THE [facility]. Back End Developer: Tony Castillo DCPIA - Discharge Planning Initial Assessment Updated by [id number]: Tony Castillo on 11/15/18 5:25 pm * Is the patient Alert and Oriented? Yes * How many steps to enter\exit or inside your home? NONE * PCP [facility] [place] * [facility] * Preadmission Environment Assisted Living * Facility Name [facility] [place] * ADLs Partial Dependent * Partial ADLs (Assistance needed) Bathing Medication Management * Equipment Walker Wheelchair * Other Equipment NO MEDICAL EQUIPMENT PROVIDER PREFERENCE * List name and contact numbers for known caregivers / representatives who currently or will assist patient after discharge: JOSE BECKETT JR. [phone] * Verbal permission to speak to the caregivers and representatives has been obtained from the patient. Yes * Community resources currently utilized None * Please name any agencies selected above. NONE * Additional services required to return to the preadmission environment? Yes * Can the patient safely return to the preadmission environment? Yes * Has this patient been hospitalized within the prior 30 days at any hospital? No Coverage Notice Reviewer: AMINAH Castillo Notice Issued Date-Time: 11/15/2018 15:50 Notice Type: IM Discharge Notice Notice Delivered To: Patient Relationship to Patient: College President Name: Delivery Method: HAND - Hand Delivered Ev Days: Prior Verbal Notification: Recipient Understood Notice: Yes Recipient Signature: Yes Med Rec Note Co-signed by Attending: Coverage Notice Comment: Reviewer: AMINAH Castillo Notice Issued Date-Time: 11/15/2018 15:50 Notice Type: IM Discharge Notice Notice Delivered To: Patient Relationship to Patient: College President Name: Delivery Method: HAND - Hand Delivered Ev Days: Prior Verbal Notification: Recipient Understood Notice: Yes Recipient Signature: Yes Med Rec Note Co-signed by Attending: Coverage Notice Comment: [facility] [place] Reviewer: [id number] Luis Alfredo Castillo Notice Issued Date-Time: 11/15/2018 15:55 Notice Type: Patient Choice Letter Notice Delivered To: Family Member Relationship to Patient: Son College President Name: JR Delivery Method: HAND - Hand Delivered Ev Days: Prior Verbal Notification: Recipient Understood Notice: Yes Recipient Signature: Yes Med Rec Note Co-signed by Attending: Coverage Notice Comment: KISHA Garza DP export: 11/16/18 4:49 p Patient Name: NEVILLE BECKETT Page 51611 at 0912 All edits/amendments must be made on the electronic document DICTATION DATE: 11/17/18910 [employer] BPM ARCHITECT: VICKY 11/17/18910 RPT#: [id number] DC DATE: STATUS: ADM IN [facility] [address] [place] [address] END OF REPORT
--- NOTE | 2018-11-17 11:55 | NUR ---
ORTHOSTATIC VS, LYIN/86 61, SITTIN/89 60, STANDIN/94 68.
--- NOTE | 2018-11-17 12:23 | NUR ---
OPAL OLSON WILL BE OVER TO ASSES IN A LITTLE WHILE.
[2018-11-17 12:28] LABS: BASOPHILS 0.3 % (0-2); EOSINOPHILS 3.7 % (0-7); HEMATOCRIT 35.1 % (42.0-54.0); HEMOGLOBIN 11.9 g/dL (13.5-17.5); IMMATURE GRANULOCYTES 0.8 % (0-5); LYMPHOCYTES 12.5 % (15-50); MCH 30.1 pg (26.0-34.0); MCHC 33.9 g/dL (31.0-37.0); MCV 88.6 fL (80.0-100.0); MEAN PLATELET VOLUME 9.8 fL (7.4-10.4); MONOCYTES 10.1 % (2-11); NEUTROPHILS 72.6 % (40-80); PLATELET COUNT 222 10x3/uL (130-400); RBC 3.96 10x6/uL (4.20-6.10); RDW 14.6 % (11.5-14.5); WBC 7.6 10x3/uL (4.8-10.8)
[2018-11-17 12:30] LABS: ALBUMIN 2.7 g/dL (3.4-5.0); ANION GAP 14.4 mmol/L (8-16); BILIRUBIN - TOTAL 0.62 mg/dL (0.2-1.3); CALCIUM 8.3 mg/dL (8.5-10.1); CARBON DIOXIDE 21.8 mmol/L (21.0-32.0); POTASSIUM - SERUM 4.2 mmol/L (3.5-5.1); PROTEIN - SERUM 5.6 g/dL (6.4-8.2)
[2018-11-17 12:32] LABS: CREATININE - SERUM 1.4 mg/dL (0.6-1.3)
--- NOTE | 2018-11-17 17:37 | NUR ---
CONSENTS SIGNED FOR [facility].
[2018-11-18] VITALS: BP 181/81; BP 196/95
--- NOTE | 2018-11-18 03:03 | NUR ---
ORTHOSTATIC BP LAYIN/81 O2 98 RA HR 57 SITTIN/81 O2 97 RA HR 59 STANDIN/95 O2 98 RA HR 69
[2018-11-18 05:51] LABS: BASOPHILS 0.2 % (0-2); EOSINOPHILS 5.6 % (0-7); IMMATURE GRANULOCYTES 0.9 % (0-5); LYMPHOCYTES 16.9 % (15-50); MCH 30.2 pg (26.0-34.0); MCHC 34.3 g/dL (31.0-37.0); MCV 87.9 fL (80.0-100.0); MEAN PLATELET VOLUME 9.8 fL (7.4-10.4); MONOCYTES 13.8 % (2-11); NEUTROPHILS 62.6 % (40-80); PLATELET COUNT 241 10x3/uL (130-400); RBC 3.98 10x6/uL (4.20-6.10); RDW 14.6 % (11.5-14.5); WBC 8.9 10x3/uL (4.8-10.8)
[2018-11-18 06:21] LABS: ALBUMIN 2.7 g/dL (3.4-5.0); BILIRUBIN - TOTAL 0.77 mg/dL (0.2-1.3); CALCIUM 8.3 mg/dL (8.5-10.1); CARBON DIOXIDE 21.3 mmol/L (21.0-32.0); CREATININE - SERUM 1.2 mg/dL (0.6-1.3); MAGNESIUM - SERUM 1.9 mg/dL (1.8-2.4); POTASSIUM - SERUM 4.3 mmol/L (3.5-5.1); PROTEIN - SERUM 5.5 g/dL (6.4-8.2)
--- NOTE | 2018-11-18 07:35 | NUR ---
PRE-OPS GIVEN. TO LINING MAKER BY BED.
[2018-11-18 08:55] VITALS: BP 183/84
--- NOTE | 2018-11-18 09:18 | NUR ---
BACK FROM CHEMICAL PLANT WORKER. VS WNL. RIGHT GROIN STABLE WITHOUT BLEEDING OR HEMATOMA NOTED. WILL MONITOR.
--- NOTE | 2018-11-18 12:08 | MORECARE ---
CASE MANAGEMENT DISCHARGE SUMMARY PATIENT: NEVILLE BECKETT UNIT: [id number] ADM DATE: 11/15/18 AGE: 88 : [birth year] SEX: M ROOM/BED: D.2655 AUTHOR: ECHODOC PHYSICIAN: REFERRING PHYSICIAN: HANNA GARCIA MD DATE OF SERVICE: 11/18/18 Discharge Plan Patient Name: NEVILLE BECKETT [facility]:[place] : 1930 Planned Disposition: Inpatient Rehab Anticipated Discharge Date: 11/17/18 Discharge Date: Expected LOS: 2 Initial Reviewer: [id number] Initial Review Date: 11/15/2018 Generated: 11/18/18 1:08 pm Comments DCP- Discharge Planning Updated by [id number]: Tony Castillo on 11/18/18 11:[address] Patient Name: NEVILLE BECKETT Encounter No: [id number] : 1930 Primary Insurance: [employer] Anticipated DC Date: 11-17-2018 Planned Disposition: Inpatient Rehab External [facility] DCP follow-up note: CM CALL[facility] AND [facility], ; BALDO ASKED REFERRAL TO BE REFAXED SHE DID NOT RECEIVE IT. CM FAXED REFERRAL AND UPDATE TO [facility] AT [phone]. CM WAITING ADMISSION DETERMINATION FROM [facility]. LORENA Emery DCP- Discharge Planning Updated by [id number]: Tony Castillo on 11/16/18 4:[address] Patient Name: NEVILLE BECKETT Encounter No: [id number] : 1930 Primary Insurance: [facility] ADMINISTRATION Anticipated DC Date: 11-17-2018 Planned Disposition: Inpatient Rehab External Planned Provider: [facility] DCP follow-up note: CM RECEIVED REQUEST TO SPEAK TO PT AND SON IN ROOM. PT'S SON REPORTS THEY [facility] DECIDED [facility] AND WANT REFERRAL SENT TO [facility]. CM CALLED AND [facility]ED [facility] CM FAXED REFERRAL TO [facility] AT [phone]. CM WAITING ADMISSION DETERMINATION FROM [facility]. LORENA Emery MANAGEMENT DCP- Discharge Planning Updated by [id number]: Tony Castillo on 11/15/18 4:[address] Patient Name: NEVILLE BECKETT Admission Status: ER Accout number: [id number] Admission Date: 11-15-2018 : 1930 Admission Diagnosis: Attending: HANNA GARCIA Current LOS: 1 Anticipated DC Date: 11-16-2018 Planned Disposition: Group Home Facility Primary Insurance: [employer] PLANNED EXTERNAL PROVIDER: [facility], MEDICARE REHAB BED Discharge Planning Comments: CM MET WITH PT IN ROOM TO DISCUSS DISCHARGE PLANNING AND NEEDS. PT REPORTS LIVING AT [facility] IN [place]. THEY ASSIST WITH BATH, MEDICATION AND MEAL PREPARATION. PT HAS WALKER AND WHEELCHAIR WITH NO MEDICAL EQUIPMENT PROVIDER PREFERENCE. PT HAS NO OUTSIDE SERVICES ASSISTING IN THE APARTMENT. CM DISCUSSED AVAILABILITY OF HOME HEALTH, REHAB SERVICES AND MEDICAL EQUIPMENT. PT HAS DISCUSSED REHAB WITH HIS SON, JR JOSE. PT WANTS REHAB AND IS DEPENDING ON JOSE TO TELL HIM WHERE. PT THINKS IT IS [facility]. [facility]. IMPORTANT MESSAGE FROM MEDICARE PROVIDED AND EXPLAINED. CM MET JOSE CANELA IN THE [place], DISCUSSED REHAB SERVICES, LOCATIONS AND PROVIDERS. [facility]. CHOICE SIGNED. CM NOTIFIED MAYO [facility]FERRAL AT [phone]. CM [facility] [employer] AT [phone]. CM WAITING ADMISSION DETERMINATION FROM [facility]. Crime Specialist: Tony Castillo DCPIA - Discharge Planning Initial Assessment Updated by [id number]: Tony Castillo on 11/15/18 5:25 pm * Is the patient Alert and Oriented? Yes * How many steps to enter\exit or inside your home? NONE * PCP [facility] [place] * Pharmacy [facility] * Preadmission Environment Assisted Living * Facility Name [facility] * ADLs Partial Dependent * Partial ADLs (Assistance needed) Bathing Medication Management * Equipment Walker Wheelchair * Other Equipment NO MEDICAL EQUIPMENT PROVIDER PREFERENCE * List name and contact numbers for known caregivers / representatives who currently or will assist patient after discharge: JOSE BECKETT JR. [phone] * Verbal permission to speak to the caregivers and representatives has been obtained from the patient. Yes * Community resources currently utilized None * Please name any agencies selected above. NONE * Additional services required to return to the preadmission environment? Yes * Can the patient safely return to the preadmission environment? Yes * Has this patient been hospitalized within the prior 30 days at any hospital? No Coverage Notice Reviewer: AMINAH Castillo Notice Issued Date-Time: 11/15/2018 15:50 Notice Type: IM Discharge Notice Notice Delivered To: Patient Relationship to Patient: Certified Coding Specialist Name: Delivery Method: HAND - Hand Delivered Ev Days: Prior Verbal Notification: Recipient Understood Notice: Yes Recipient Signature: Yes Med Rec Note Co-signed by Attending: Coverage Notice Comment: Reviewer: AMINAH Castillo Notice Issued Date-Time: 11/15/2018 15:50 Notice Type: IM Discharge Notice Notice Delivered To: Patient Relationship to Patient: Certified Coding Specialist Name: Delivery Method: HAND - Hand Delivered Ev Days: Prior Verbal Notification: Recipient Understood Notice: Yes Recipient Signature: Yes Med Rec Note Co-signed by Attending: Coverage Notice Comment: [facility] IN [place] Reviewer: AMINAH Castillo Notice Issued Date-Time: 11/15/2018 15:55 Notice Type: Patient Choice Letter Notice Delivered To: Family Member Relationship to Patient: Son Certified Coding Specialist Name: JR Delivery Method: HAND - Hand Delivered Ev Days: Prior Verbal Notification: Recipient Understood Notice: Yes Recipient Signature: Yes Med Rec Note Co-signed by Attending: Coverage Notice Comment: [facility] Last DP export: 11/17/18 8:11 a Patient Name: NEVILLE BECKETT Page 81092 at 1208 All edits/amendments must be made on the electronic document DICTATION DATE: 11/18/18 1208 PAPER COUNTER: VICKY 11/18/18 1208 RPT#: [id number] DC DATE: STATUS: ADM IN [facility] [address] [place] [address] END OF REPORT
--- NOTE | 2018-11-18 12:09 | NUR ---
Nutrition Follow-up: S/p LHC/stent placement today. Pt reports decreased appetite since admit. Diet: Diabetic PO intake: 58% avg (11/17) Wt: 188# Last BM: 11/16 per pt Labs reviewed Meds reviewed May consider cardiac carb consistent diet. +Glucerna with meals. [place] food preferences within diet restrictions. RD following.
[2018-11-18 12:31] VITALS: BP 161/68
--- NOTE | 2018-11-18 13:09 | NUR ---
BED REST UP. GROIN STABLE.
--- NOTE | 2018-11-18 14:08 | NUR ---
UP TO AMBULATE WITH PT ASSIST.
[2018-11-18 15:36] VITALS: BP 158/71
--- NOTE | 2018-11-18 16:48 | MORECARE ---
CASE MANAGEMENT DISCHARGE SUMMARY PATIENT: NEVILLE BECKETT UNIT: [id number] ADM DATE: 11/15/18 AGE: 88 : [birth year] SEX: M ROOM/BED: D.7838 AUTHOR: ESTELLE DODGE PHYSICIAN: REFERRING PHYSICIAN: HANNA GARCIA MD DATE OF SERVICE: 11/18/18 Discharge Plan Patient Name: NEVILLE BECKETT Facility: [facility]:[place] : 1930 Planned Disposition: Inpatient Rehab Anticipated Discharge Date: 11/17/18 Discharge Date: Expected LOS: 2 Initial Reviewer: [id number] Initial Review Date: 11/15/2018 Generated: 11/18/18 5:48 pm Comments DCP- Discharge Planning Updated by [id number]: Tony Castillo on 11/18/18 3:[address] Patient Name: NEVILLE BECKETT Encounter No: [id number] : 1930 Primary Insurance: [email or web address] Anticipated DC Date: 11-17-2018 Planned Disposition: Inpatient Rehab External Planned Provider: [facility] OR [facility] DCP follow-up note: CM SPOKE TO PT AND PT'S SON, PROVIDED UPDATE. PT'S SON ASKED IF PT CAN BE CONSIDERED FOR INPATIENT REHAB AT [place]. HE WOULD BE WILLING FOR REHAB HERE IN [place] PRIOR TO PT RETURNING TO ASSISTED LIVING AT [facility]. SON TO TRANSPORT AT DISCHARGE. REHAB SCREENING STILL PENDING FOR [facility]. DENIA WILL FOLLOW UP WITH BALDO OF [facility] [facility] AND [facility] TO DETERMINE WHO CAN AND WILL ACCEPT FOR REHAB SERVICES. Tony Castillo, CASE GLORIA DCP- Discharge Planning Updated by [id number]: Tony Castillo on 11/18/18 11:[address] Patient Name: NEVILLE BECKETT Encounter No: [id number] : 1930 Primary Insurance: [email or web address] Anticipated DC Date: 11-17-2018 Planned Disposition: Inpatient Rehab External Planned Provider: [facility] DCP follow-up note: DENIA CALLED AND SPOKE TO BALDO AT [facility], ; BALDO ASKED REFERRAL TO BE REFAXED SHE DID NOT RECEIVE IT. CM FAXED REFERRAL AND UPDATE TO [facility] AT [phone]. CM WAITING ADMISSION DETERMINATION FROM [facility]. LORENA Emery DCP- Discharge Planning Updated by [id number]: Tony Castillo on 11/16/18 4:[address] Patient Name: NEVILLE BECKETT Encounter No: [id number] : 1930 Primary Insurance: [facility] ADMINISTRATION Anticipated DC Date: 11-17-2018 Planned Disposition: Inpatient Rehab External Planned Provider: [facility] DCP follow-up note: CM RECEIVED REQUEST TO SPEAK TO PT AND SON IN ROOM. PT'S SON REPORTS THEY HAVE DECIDED NOT TO DO REHAB AT [facility] AND WANT REFERRAL SENT TO [facility]. CM CALLED AND CANCELLED [facility]. CM FAXED REFERRAL TO [facility] AT [phone]. CM WAITING ADMISSION DETERMINATION FROM [facility]. LORENA Emery DCP- Discharge Planning Updated by [id number]: Tony Castillo on 11/15/18 4:[address] Patient Name: NEVILLE BECKETT Admission Status: ER Accout number: [id number] Admission Date: 11-15-2018 : 1930 Admission Diagnosis: Attending: HANNA GARCIA Current LOS: 1 Anticipated DC Date: 11-16-2018 Planned Disposition: [facility] Facility Primary Insurance: [email or web address] [facility] PLANNED EXTERNAL PROVIDER: [facility], MEDICARE REHAB BED Discharge Planning Comments: CM MET WITH PT IN ROOM TO DISCUSS DISCHARGE PLANNING AND NEEDS. PT REPORTS LIVING AT [facility] IN [place]. THEY ASSIST WITH BATH, MEDICATION AND MEAL PREPARATION. PT HAS WALKER AND WHEELCHAIR WITH NO MEDICAL EQUIPMENT PROVIDER PREFERENCE. PT HAS NO OUTSIDE SERVICES ASSISTING IN THE APARTMENT. CM DISCUSSED AVAILABILITY OF HOME HEALTH, REHAB SERVICES AND MEDICAL EQUIPMENT. PT HAS DISCUSSED REHAB WITH HIS SON, JR JOSE. PT WANTS REHAB AND IS DEPENDING ON JOSE TO TELL HIM WHERE. [facility]IN[facility]. CHOICE SIGNED FOR [facility]. IMPORTANT MESSAGE FROM MEDICARE PROVIDED AND EXPLAINED. CM MET JOSE CANELA IN THE [place], DISCUSSED REHAB SERVICES, LOCATIONS AND PROVIDERS. JOSE CHOSE [facility]. CHOICE SIGNED. CM NOTIFIED MAYO OF [facility] REFERRAL AT [phone]. CM FAXED REFERRAL TO [facility] AT [phone]. CM WAITING ADMISSION DETERMINATION FROM [facility]. Wood Preserving Plant Laborer: Tony Castillo DCPIA - Discharge Planning Initial Assessment Updated by [email or web address]: Tony Castillo on 11/15/18 5:25 pm * Is the patient Alert and Oriented? Yes * How many steps to enter\exit or inside your home? NONE * [facility] [place] * [facility] * Preadmission Environment Assisted Living * Facility Name [facility] * ADLs Partial Dependent * Partial ADLs (Assistance needed) Bathing Medication Management * Equipment Walker Wheelchair * Other Equipment NO MEDICAL EQUIPMENT PROVIDER PREFERENCE * List name and contact numbers for known caregivers / representatives who currently or will assist patient after discharge: JOSE BECKETT JR. [phone] * Verbal permission to speak to the caregivers and representatives has been obtained from the patient. Yes * Community resources currently utilized None * Please name any agencies selected above. NONE * Additional services required to return to the preadmission environment? Yes * Can the patient safely return to the preadmission environment? Yes * Has this patient been hospitalized within the prior 30 days at any hospital? No Coverage Notice Reviewer: AMINAH Castillo Notice Issued Date-Time: 11/15/2018 15:50 Notice Type: IM Discharge Notice Notice Delivered To: Patient Relationship to Patient: Real Estate Services Administrator Name: Delivery Method: HAND - Hand Delivered Ev Days: Prior Verbal Notification: Recipient Understood Notice: Yes Recipient Signature: Yes Med Rec Note Co-signed by Attending: Coverage Notice Comment: Reviewer: AMINAH Castillo Notice Issued Date-Time: 11/15/2018 15:50 Notice Type: IM Discharge Notice Notice Delivered To: Patient Relationship to Patient: Real Estate Services Administrator Name: Delivery Method: HAND - Hand Delivered Ev Days: Prior Verbal Notification: Recipient Understood Notice: Yes Recipient Signature: Yes Med Rec Note Co-signed by Attending: Coverage Notice Comment: [facility] IN [place] Reviewer: [id number] Luis Alfredo Castillo Notice Issued Date-Time: 11/15/2018 15:55 Notice Type: Patient Choice Letter Notice Delivered To: Family Member Relationship to Patient: Son Real Estate Services Administrator Name: JR Delivery Method: HAND - Hand Delivered Ev Days: Prior Verbal Notification: Recipient Understood Notice: Yes Recipient Signature: Yes Med Rec Note Co-signed by Attending: Coverage Notice Comment: [facility] Last DP export: 11/18/18 11:08 a Patient Name: NEVILLE BECKETT Page 28700 at 1648 All edits/amendments must be made on the electronic document DICTATION DATE: 11/18/181646 MODEL MAKER FIBERGLASS: VICKY 11/18/181646 RPT#: [id number] DC DATE: STATUS: ADM IN [facility] [address] [place] [address] END OF REPORT
--- NOTE | 2018-11-18 19:52 | NUR ---
RECEIVED BEDSIDE REPORT. PATIENT ALERT AND ORIENTED, RESTING COMFORTABLY IN BED. RESPIRATIONS ARE EVEN AND UNLABORED. NO S/S OF DISTRESS. NO C/O PAIN. CALL LIGHT WITHIN REACH. WILL CPOC.
[2018-11-18 20:00] VITALS: BP 153/64
[2018-11-19] VITALS: BP 157/73; BP 157/75; BP 177/117
[2018-11-19 04:00] VITALS: BP 192/82
[2018-11-19 06:09] LABS: BASOPHILS 0.3 % (0-2); EOSINOPHILS 5.6 % (0-7); HEMATOCRIT 31.8 % (42.0-54.0); HEMOGLOBIN 10.6 g/dL (13.5-17.5); IMMATURE GRANULOCYTES 0.9 % (0-5); LYMPHOCYTES 14.1 % (15-50); MCH 29.7 pg (26.0-34.0); MCHC 33.3 g/dL (31.0-37.0); MCV 89.1 fL (80.0-100.0); MEAN PLATELET VOLUME 9.9 fL (7.4-10.4); MONOCYTES 12.7 % (2-11); NEUTROPHILS 66.4 % (40-80); PLATELET COUNT 205 10x3/uL (130-400); RBC 3.57 10x6/uL (4.20-6.10); RDW 14.7 % (11.5-14.5); WBC 6.9 10x3/uL (4.8-10.8)
[2018-11-19 06:37] LABS: ALBUMIN 2.5 g/dL (3.4-5.0); ANION GAP 12.6 mmol/L (8-16); BILIRUBIN - TOTAL 0.58 mg/dL (0.2-1.3); CALCIUM 7.5 mg/dL (8.5-10.1); CARBON DIOXIDE 22.8 mmol/L (21.0-32.0); CREATININE - SERUM 1.3 mg/dL (0.6-1.3); MAGNESIUM - SERUM 1.9 mg/dL (1.8-2.4); POTASSIUM - SERUM 4.4 mmol/L (3.5-5.1); PROTEIN - SERUM 5.1 g/dL (6.4-8.2)
--- NOTE | 2018-11-19 07:19 | NUR ---
REPORT RECEIVED. WILL CONTINUE WITH POC. PT CURRENTLY LYING ON LEFT SIDE RESTING. CALL LIGHT W/I REACH. RR EVEN AND UNLABORED ON RA. R.FOR PIV IS SALINE LOCKED. NO S/S OF DISTRESS NOTED. PT DENIES ANY NEEDS. WILL CTM.
--- NOTE | 2018-11-19 09:05 | MORECARE ---
CASE MANAGEMENT DISCHARGE SUMMARY PATIENT: NEVILLE BECKETT UNIT: [id number] ADM DATE: 11/15/18 AGE: 88 : [birth year] SEX: M ROOM/BED: D.2119 AUTHOR: ESTELLE DODGE PHYSICIAN: REFERRING PHYSICIAN: HANNA GARCIA MD DATE OF SERVICE: 11/19/18 Discharge Plan Patient Name: NEVILLE BECKETT Facility: [facility]:[place] : 1930 Planned Disposition: Inpatient Rehab Anticipated Discharge Date: 11/19/18 Discharge Date: Expected LOS: 4 Initial Reviewer: [id number] Initial Review Date: 11/15/2018 Generated: 11/19/18 10:05 am Comments DCP- Discharge Planning Updated by [id number]: Tony Castillo on 11/19/18 8:[address] Patient Name: NEVILLE BECKETT Encounter No: [id number] : 1930 Primary Insurance: [facility] Anticipated DC Date: 11-19-2018 Planned Disposition: Inpatient Rehab External Planned Provider: [place] [facility] DCP follow-up note: CM RECEIVED CALL FROM BALDO AT [facility], ; THEY WILL ACCEPT PT FOR REHAB, THEY WILL NOT TRANSPORT AND PT NEEDS TO BE IN THE BUILDING BY 2PM TODAY. CM NOTIFIED PT IN ROOM WHO IS IN AGREEMENT WITH DISCHARGE TODAY TO REHAB IN [place], REPORTS ABILITY TO RIDE WITH SON REPORTS HIS SON WILL BE HERE SHORTLY. IMPORTANT MESSAGE FROM MEDICARE PROVIDED AND EXPLAINED. CM NOTIFIED KAREN SIMENTAL. FOR DISCHARGE, FAX DISCHARGE INFORMATION TO [facility] AT [phone]. NURSE REPORT TO BE CALLED TO [facility] AT [phone]. PT'S SON TO TRANSPORT. LORENA Emery DCP- Discharge Planning Updated by [id number]: Tony Castillo on 11/18/18 3:[address] Patient Name: NEVILLE BECKETT Encounter No: [id number] : 1930 Primary Insurance: [employer] [facility] Anticipated DC Date: 11-17-2018 Planned Disposition: Inpatient Rehab External Planned Provider: [facility] OR [facility] DCP follow-up note: CM SPOKE TO PT AND PT'S SON, PROVIDED UPDATE. PT'S SON ASKED IF PT CAN BE CONSIDERED FOR INPATIENT REHAB AT [place]. HE WOULD BE WILLING FOR REHAB HERE IN [place] PRIOR TO PT RETURNING TO ASSISTED LIVING AT [facility]. SON TO TRANSPORT AT DISCHARGE. REHAB SCREENING STILL PENDING FOR [facility]. CM WILL FOLLOW UP WITH BALDO OF [facility] AND [facility] TO DETERMINE WHO CAN AND WILL ACCEPT FOR REHAB SERVICES. Tony Castillo CASE MANAGEMENT DCP- Discharge Planning Updated by [id number]: Tony Castillo on 11/18/18 11:[address] Patient Name: NEVILLE BECKETT Encounter No: [id number] : 1930 Primary Insurance: [facility] Anticipated DC Date: 11-17-2018 Planned Disposition: Inpatient Rehab External [facility] DCP follow-up note: CM CALL[facility], ; BALDO ASKED REFERRAL TO BE REFAXED SHE DID NOT RECEIVE IT. CM FAXED REFERRAL AND UPDATE TO [facility] AT [phone]. CM WAITING [facility]. LORENA Emery DCP- Discharge Planning Updated by [id number]: Tony Castillo on 11/16/18 4:[address] Patient Name: NEVILLE BECKETT Encounter No: [id number] : 1930 Primary Insurance: [employer] [facility] Anticipated DC Date: 11-17-2018 Planned Disposition: Inpatient Rehab External [facility] DCP follow-up note: CM RECEIVED REQUEST TO SPEAK TO PT AND SON IN ROOM. PT'S SON REPORTS THEY HAVE DECIDED NOT TO DO REHAB AT [facility] AND WANT REFERRAL SENT TO [facility]. CM CALLED AND CANCELLED [facility]. CM FAXED REFERRAL TO [facility] AT [phone]. CM WAITING ADMISSION DETERMINATION FROM [facility]. LORENA Emery DCP- Discharge Planning Updated by [id number]: Tony Castillo on 11/15/18 4:[address] Patient Name: NEVILLE BECKETT Admission Status: ER Accout number: [id number] Admission Date: 11-15-2018 : 1930 Admission Diagnosis: Attending: HANNA GARCIA Current LOS: 1 Anticipated DC Date: 11-16-2018 Planned Disposition: Retirement Facility Primary Insurance: [employer] PLANNED EXTERNAL PROVIDER: [facility], MEDICARE REHAB BED Discharge Planning Comments: CM MET WITH PT IN ROOM TO DISCUSS DISCHARGE PLANNING AND NEEDS. PT REPORTS LIVING AT [facility] IN [place]. THEY ASSIST WITH BATH, MEDICATION AND MEAL PREPARATION. PT HAS WALKER AND WHEELCHAIR WITH NO MEDICAL EQUIPMENT PROVIDER PREFERENCE. PT HAS NO OUTSIDE SERVICES ASSISTING IN THE APARTMENT. CM DISCUSSED AVAILABILITY OF HOME HEALTH, REHAB SERVICES AND MEDICAL EQUIPMENT. PT HAS DISCUSSED REHAB WITH HIS SON, JR JOSE. PT WANTS REHAB AND IS DEPENDING ON JOSE TO TELL HIM WHERE. [facility]. NIDIA SIGNED FOR [facility]. IMPORTANT MESSAGE FROM MEDICARE PROVIDED AND EXPLAINED. CM MET JOSE CANELA IN [place], DISCUSSED REHAB SERVICES, LOCATIONS AND PROVIDERS. JOSE CHOSE [facility]. NIDIA SIGNED. CM NOTIFIED MAYO OF [facility] OF REFERRAL AT [phone]. CM FAXED REFERRAL TO [facility] VIA [employer] AT [phone]. CM WAITING ADMISSION DETERMINATION FROM [facility]. Coal Getter: Tony Castillo DCPIA - Discharge Planning Initial Assessment Updated by [id number]: Tony Castillo on 11/15/18 5:25 pm * Is the patient Alert and Oriented? Yes * How many steps to enter\exit or inside your home? NONE * [facility]CP [facility] [place] * [facility] * Preadmission Environment Assisted Living * Facility Name [facility] [place] * ADLs Partial Dependent * Partial ADLs (Assistance needed) Bathing Medication Management * Equipment Walker Wheelchair * Other Equipment NO MEDICAL EQUIPMENT PROVIDER PREFERENCE * List name and contact numbers for known caregivers / representatives who currently or will assist patient after discharge: JOSE BECKETT JR. [phone] * Verbal permission to speak to the caregivers and representatives has been obtained from the patient. Yes * Community resources currently utilized None * Please name any agencies selected above. NONE * Additional services required to return to the preadmission environment? Yes * Can the patient safely return to the preadmission environment? Yes * Has this patient been hospitalized within the prior 30 days at any hospital? No Coverage Notice Reviewer: AMINAH Castillo Notice Issued Date-Time: 11/15/2018 15:50 Notice Type: IM Discharge Notice Notice Delivered To: Patient Relationship to Patient: Seam Taper Machine Name: Delivery Method: HAND - Hand Delivered Ev Days: Prior Verbal Notification: Recipient Understood Notice: Yes Recipient Signature: Yes Med Rec Note Co-signed by Attending: Coverage Notice Comment: Reviewer: AMINAH Castillo Notice Issued Date-Time: 11/15/2018 15:50 Notice Type: IM Discharge Notice Notice Delivered To: Patient Relationship to Patient: Seam Taper Machine Name: Delivery Method: HAND - Hand Delivered Ev Days: Prior Verbal Notification: Recipient Understood Notice: Yes Recipient Signature: Yes Med Rec Note Co-signed by Attending: Coverage Notice Comment: [facility] IN [place] Reviewer: AMINAH Castillo Notice Issued Date-Time: 11/15/2018 15:55 Notice Type: Patient Choice Letter Notice Delivered To: Family Member Relationship to Patient: Son Seam Taper Machine Name: JR Delivery Method: HAND - Hand Delivered Ev Days: Prior Verbal Notification: Recipient Understood Notice: Yes Recipient Signature: Yes Med Rec Note Co-signed by Attending: Coverage Notice Comment: [facility] Reviewer: AMINAH Castillo Notice Issued Date-Time: 11/19/2018 8:00 Notice Type: IM Discharge Notice Notice Delivered To: Patient Relationship to Patient: Seam Taper Machine Name: Delivery Method: HAND - Hand Delivered Ev Days: Prior Verbal Notification: Recipient Understood Notice: Yes Recipient Signature: Yes Med Rec Note Co-signed by Attending: Coverage Notice Comment: Last DP export: 11/18/18 3:48 p Patient Name: NEVILLE BECKETT Page 00402 at 0905 All edits/amendments must be made on the electronic document DICTATION DATE: 11/19/18904 SKATING CARHOP: VICKY 11/19/18904 RPT#: [id number] DC DATE: STATUS: ADM IN [facility] [address] [place] [address] END OF REPORT
--- NOTE | 2018-11-19 09:25 | NUR ---
I have reviewed this patient and I concur with the Shift Assessment completed by the Licensed Practical Nurse today this shift.
[2018-11-19] MEDS ORDERED: ZITHROMAX250 MG PO (10:03)
[2018-11-19] MEDS ORDERED: PLAVIX75 MG PO (10:03)
[2018-11-19] MEDS ORDERED: LISINOPRIL10 MG PO (10:04)
[2018-11-19] MEDS ORDERED: OMNICEF300 MG PO (10:08)
--- NOTE | 2018-11-19 11:22 | NUR ---
PT DISCHARGED TO [facility]. PIV REMOVED WITH CATHETER TIP FULLY INTACT. TELEMETRY REMOVED AND RETURNED. POA SIGNED PROPER DISCHARGE INSTRUCTIONS AND REMOVED ALL VALUABLES FROM THE ROOM.
--- NOTE | 2018-11-19 11:38 | MORECARE ---
CASE MANAGEMENT DISCHARGE SUMMARY PATIENT: NEVILLE BECKETT UNIT: [id number] ADM DATE: 11/15/18 AGE: 88 : [birth year] SEX: M ROOM/BED: D.9899 AUTHOR: ESTELLE DODGE PHYSICIAN: REFERRING PHYSICIAN: HANNA GARCIA MD DATE OF SERVICE: 11/19/18 Discharge Plan Patient Name: NEVILLE BECKETT Facility: [facility]:[place] : 1930 Planned Disposition: Inpatient Rehab Anticipated Discharge Date: 11/19/18 Discharge Date: 11/19/2018 Expected LOS: 4 Initial Reviewer: [id number] Initial Review Date: 11/15/2018 Generated: 11/19/18 12:38 pm Comments DCP- Discharge Planning Updated by [id number]: Tony Castillo on 11/19/18 8:[address] Patient Name: NEVILLE BECKETT Encounter No: [id number] : 1930 Primary Insurance: [employer] Anticipated DC Date: 11-19-2018 Planned Disposition: Inpatient Rehab External Planned Provider: [facility] DCP follow-up note: CM RECEIVED CALL FROM BALDO AT [facility], ; THEY WILL ACCEPT PT FOR REHAB, THEY WILL NOT TRANSPORT AND PT NEEDS TO BE IN THE BUILDING BY 2PM TODAY. CM NOTIFIED PT IN ROOM WHO IS IN AGREEMENT WITH DISCHARGE TODAY TO REHAB IN [place], REPORTS ABILITY TO RIDE WITH SON REPORTS HIS SON WILL BE HERE SHORTLY. IMPORTANT MESSAGE FROM MEDICARE PROVIDED AND EXPLAINED. CM NOTIFIED KAREN SIMENTAL. FOR DISCHARGE, FAX DISCHARGE INFORMATION TO [facility] AT [phone]. NURSE REPORT TO BE CALLED TO [facility] AT [phone]. PT'S SON TO TRANSPORT. LORENA Emery MANAGEMENT DCP- Discharge Planning Updated by [id number]: Tony Castillo on 11/18/18 3:[address] Patient Name: NEVILLE BECKETT Encounter No: [id number] : 1930 Primary Insurance: [email or web address] [facility] Anticipated DC Date: 11-17-2018 Planned Disposition: Inpatient Rehab External Planned Provider: [facility] OR [facility] DCP follow-up note: CM SPOKE TO PT AND PT'S SON, PROVIDED UPDATE. PT'S SON ASKED IF PT CAN BE CONSIDERED FOR INPATIENT REHAB AT [facility]. HE WOULD BE WILLING FOR REHAB HERE IN [place] PRIOR TO PT RETURNING TO ASSISTED LIVING AT [facility]. SON TO TRANSPORT AT DISCHARGE. REHAB SCREENING STILL PENDING FOR [facility]. CM WILL FOLLOW UP WITH BALDO OF [place] [facility] AND [facility] TO DETERMINE WHO CAN AND WILL ACCEPT FOR REHAB SERVICES. Tony Castillo CASE MANAGEMENT DCP- Discharge Planning Updated by [id number]: Tony Castillo on 11/18/18 11:[address] Patient Name: NEVILLE BECKETT Encounter No: [id number] : 1930 Primary Insurance: [email or web address] [facility] Anticipated DC Date: 11-17-2018 Planned Disposition: Inpatient Rehab External [facility] DCP follow-up note: CM CALLED AND SPOKE TO BALDO AT [facility], ; BALDO ASKED REFERRAL TO BE REFAXED SHE DID NOT RECEIVE IT. CM FAXED REFERRAL AND UPDATE TO [facility] AT [phone]. CM [facility] LORENA Emery DCP- Discharge Planning Updated by [id number]: Tony Castillo on 11/16/18 4:[address] Patient Name: NEVILLE BECKETT Encounter No: [id number] : 1930 Primary Insurance: [employer] Anticipated DC Date: 11-17-2018 Planned Disposition: Inpatient Rehab External Planned Provider: [facility] DCP follow-up note: CM RECEIVED REQUEST TO SPEAK TO PT AND SON IN ROOM. PT'S SON REPORTS THEY HAVE DECIDED NOT TO DO REHAB AT THE [facility] AND WANT REFERRAL SENT TO [facility]. CM CALLED AND CANCELLED THE [facility]. CM FAXED REFERRAL TO [facility] AT [phone]. CM WAITING ADMISSION DETERMINATION FROM [facility]. LORENA Emery DCP- Discharge Planning Updated by [id number]: Tony Castillo on 11/15/18 4:[address] Patient Name: NEVILLE BECKETT Admission Status: ER Accout number: [id number] Admission Date: 11-15-2018 : 1930 Admission Diagnosis: Attending: HANNA GARCIA Current LOS: 1 Anticipated DC Date: 11-16-2018 Planned Disposition: Alf Facility Primary Insurance: [employer] PLANNED EXTERNAL PROVIDER: [facility], MEDICARE REHAB BED Discharge Planning Comments: CM MET WITH PT IN ROOM TO DISCUSS DISCHARGE PLANNING AND NEEDS. PT REPORTS LIVING AT [facility] IN [place]. THEY ASSIST WITH BATH, MEDICATION AND MEAL PREPARATION. PT HAS WALKER AND WHEELCHAIR WITH NO MEDICAL EQUIPMENT PROVIDER PREFERENCE. PT HAS NO OUTSIDE SERVICES ASSISTING IN THE APARTMENT. CM DISCUSSED AVAILABILITY OF HOME HEALTH, REHAB SERVICES AND MEDICAL EQUIPMENT. PT HAS DISCUSSED REHAB WITH HIS SON, JR JOSE. PT WANTS REHAB AND IS DEPENDING ON JOSE TO TELL HIM WHERE. PT THINKS IT IS [facility]. NIDIA SIGNED FOR [facility]. IMPORTANT MESSAGE FROM MEDICARE PROVIDED AND EXPLAINED. CM MET JOSE CANELA IN THE [place], DISCUSSED REHAB SERVICES, LOCATIONS AND PROVIDERS. JOSE CHOSE THE [facility]. NIDIA SIGNED. CM NOTIFIED MAYO OF THE [facility] OF REFERRAL AT [phone]. CM FAXED REFERRAL TO THE [facility] VIA [employer] AT [phone]. CM WAITING ADMISSION DETERMINATION FROM THE [facility]. Wastewater Analyst Lab Analyst: Tony Castillo DCPIA - Discharge Planning Initial Assessment Updated by [id number]: Tony Castillo on 11/15/18 5:25 pm * Is the patient Alert and Oriented? Yes * How many steps to enter\exit or inside your home? NONE * PCP [facility] [place] * [facility] * Preadmission Environment Assisted Living * Facility Name [facility] [place] * ADLs Partial Dependent * Partial ADLs (Assistance needed) Bathing Medication Management * Equipment Walker Wheelchair * Other Equipment NO MEDICAL EQUIPMENT PROVIDER PREFERENCE * List name and contact numbers for known caregivers / representatives who currently or will assist patient after discharge: JOSE BECKETT JR. [phone] * Verbal permission to speak to the caregivers and representatives has been obtained from the patient. Yes * Community resources currently utilized None * Please name any agencies selected above. NONE * Additional services required to return to the preadmission environment? Yes * Can the patient safely return to the preadmission environment? Yes * Has this patient been hospitalized within the prior 30 days at any hospital? No Coverage Notice Reviewer: AMINAH Castillo Notice Issued Date-Time: 11/15/2018 15:50 Notice Type: IM Discharge Notice Notice Delivered To: Patient Relationship to Patient: Senior Agricultural Assistant Name: Delivery Method: HAND - Hand Delivered Ev Days: Prior Verbal Notification: Recipient Understood Notice: Yes Recipient Signature: Yes Med Rec Note Co-signed by Attending: Coverage Notice Comment: Reviewer: AMINAH Castillo Notice Issued Date-Time: 11/15/2018 15:50 Notice Type: IM Discharge Notice Notice Delivered To: Patient Relationship to Patient: Senior Agricultural Assistant Name: Delivery Method: HAND - Hand Delivered Ev Days: Prior Verbal Notification: Recipient Understood Notice: Yes Recipient Signature: Yes Med Rec Note Co-signed by Attending: Coverage Notice Comment: [facility] [place] Reviewer: AMINAH Castillo Notice Issued Date-Time: 11/15/2018 15:55 Notice Type: Patient Choice Letter Notice Delivered To: Family Member Relationship to Patient: Son Senior Agricultural Assistant Name: JR Delivery Method: HAND - Hand Delivered Ev Days: Prior Verbal Notification: Recipient Understood Notice: Yes Recipient Signature: Yes Med Rec Note Co-signed by Attending: Coverage Notice Comment: FREIDA REAGAN Reviewer: AMINAH Castillo Notice Issued Date-Time: 11/19/2018 8:00 Notice Type: IM Discharge Notice Notice Delivered To: Patient Relationship to Patient: Senior Agricultural Assistant Name: Delivery Method: HAND - Hand Delivered Ev Days: Prior Verbal Notification: Recipient Understood Notice: Yes Recipient Signature: Yes Med Rec Note Co-signed by Attending: Coverage Notice Comment: Last DP export: 11/19/18 8:05 a Patient Name: NEVILLE BECKETT Page 35611 at 1138 All edits/amendments must be made on the electronic document DICTATION DATE: 11/19/181137 SQL SSRS DEVELOPER: VICKY 11/19/188 RPT#: [id number] DC DATE:11/19/18 STATUS: DIS IN [place] [address] [place] [address] END OF REPORT
--- NOTE | 2018-11-19 12:14 | MORECARE ---
CASE MANAGEMENT DISCHARGE SUMMARY PATIENT: NEVILLE BECKETT UNIT: [id number] ADM DATE: 11/15/18 AGE: 88 : [birth year] SEX: M ROOM/BED: D.2649 AUTHOR: ECHODOC PHYSICIAN: REFERRING PHYSICIAN: HANNA GARCIA MD DATE OF SERVICE: 11/19/18 Discharge Plan Patient Name: NEVILLE BECKETT Facility: [facility]:[place] : 1930 Planned Disposition: Inpatient Rehab Anticipated Discharge Date: 11/19/18 Discharge Date: 11/19/2018 Expected LOS: 4 Initial Reviewer: [id number] Initial Review Date: 11/15/2018 Generated: 11/19/18 1:14 pm Comments DCP- Discharge Planning Updated by [id number]: Tony Castillo on 11/19/18 11:[address] Patient Name: NEVILLE BECKETT Encounter No: [id number] : 1930 Primary Insurance: [employer] Anticipated DC Date: 11-19-2018 Planned Disposition: Inpatient Rehab External Planned Provider: [facility] DCP follow-up note: CM [facility], ; THEY WILL ACCEPT PT FOR REHAB, THEY WILL NOT TRANSPORT AND PT NEEDS TO BE IN THE BUILDING BY 2PM TODAY. CM NOTIFIED PT IN ROOM WHO IS IN AGREEMENT WITH DISCHARGE TODAY TO REHAB IN [place], REPORTS ABILITY TO RIDE WITH SON REPORTS HIS SON WILL BE HERE SHORTLY. IMPORTANT MESSAGE FROM MEDICARE PROVIDED AND EXPLAINED. CM NOTIFIED KAREN SIMENTAL. FOR DISCHARGE, FAX DISCHARGE INFORMATION TO [facility] AT [phone]. NURSE REPORT TO BE CALLED TO [facility] AT [phone]. PT'S SON TO TRANSPORT. Tony Castillo, CASE MANAGEMENT Appended by Tony Castillo on 11/19/2018 12:08 CDT: CM RECEIVED DISCHARGE, FAXED DISCHARGE INFORMATION TO [facility] AT [phone]. NURSE REPORT TO BE CALLED TO [place] [facility] AT [phone]. PT'S SON TO TRANSPORT. Tony Anna, CASE MANAGEMENT DCP- Discharge Planning Updated by [id number]: Tony Castillo on 11/18/18 3:[address] Patient Name: NEVILLE BECKETT Encounter No: [id number] : 1930 Primary Insurance: [employer] Anticipated DC Date: 11-17-2018 Planned Disposition: Inpatient Rehab External Planned Provider: [facility] OR [facility] DCP follow-up note: CM SPOKE TO PT AND PT'S SON, PROVIDED UPDATE. PT'S SON ASKED IF PT CAN BE CONSIDERED FOR INPATIENT REHAB AT [place]. HE WOULD BE WILLING FOR REHAB HERE IN [place] PRIOR TO PT RETURNING TO ASSISTED LIVING AT [facility]. SON TO TRANSPORT AT DISCHARGE. REHAB SCREENING STILL PENDING FOR [facility]. CM WILL FOLLOW UP WITH BALDO OF [facility] AND [facility] TO DETERMINE WHO CAN AND WILL ACCEPT FOR REHAB SERVICES. Tony Castillo CASE MANAGEMENT DCP- Discharge Planning Updated by [id number]: Tony Castillo on 11/18/18 11:[address] Patient Name: NEVILLE BECKETT Encounter No: [id number] : 1930 Primary Insurance: [employer] [facility] Anticipated DC Date: 11-17-2018 Planned Disposition: [facility]patient [facility]hab [facility] follow-up note: CM CALLED AND SPOKE TO BALDO AT [facility], ; BALDO ASKED REFERRAL TO BE REFAXED SHE DID NOT RECEIVE IT. CM FAXED REFERRAL AND UPDATE TO [facility] AT [phone]. CM WAITING ADMISSION DETERMINATION FROM [facility]. Tony Castillo CASE MANAGEMENT DCP- Discharge Planning Updated by [id number]: Tony Castillo on 11/16/18 4:[address] Patient Name: NEVILLE BECKETT Encounter No: [id number] : 1930 Primary Insurance: [employer] Anticipated DC Date: 11-17-2018 Planned Disposition: Inpatient Rehab External Planned Provider: [facility] DCP follow-up note: CM RECEIVED REQUEST TO SPEAK TO PT AND SON IN ROOM. PT'S SON REPORTS THEY HAVE DECIDED NOT TO DO REHAB AT [facility] AND WANT REFERRAL SENT TO [facility]. CM CALLED AND CANCELLED THE [facility] CM FAXED REFERRAL TO [facility] AT [phone]. CM WAITING ADMISSION DETERMINATION FROM [facility]. Tony Castillo, CASE MANAGEMENT DCP- Discharge Planning Updated by [id number]: Tony Castillo on 11/15/18 4:[address] Patient Name: NEVILLE BECKETT Admission Status: ER Accout number: [id number] Admission Date: 11-15-2018 : 1930 Admission Diagnosis: Attending: HANNA GARCIA Current LOS: 1 Anticipated DC Date: 11-16-2018 Planned Disposition: Nursing Home Facility Primary Insurance: [employer] PLANNED EXTERNAL PROVIDER: [facility], MEDICARE REHAB BED Discharge Planning Comments: CM MET WITH PT IN ROOM TO DISCUSS DISCHARGE PLANNING AND NEEDS. PT REPORTS LIVING AT [facility] IN [place]. THEY ASSIST WITH BATH, MEDICATION AND MEAL PREPARATION. PT HAS WALKER AND WHEELCHAIR WITH NO MEDICAL EQUIPMENT PROVIDER PREFERENCE. PT HAS NO OUTSIDE SERVICES ASSISTING IN THE APARTMENT. CM DISCUSSED AVAILABILITY OF HOME HEALTH, REHAB SERVICES AND MEDICAL EQUIPMENT. PT HAS DISCUSSED REHAB WITH HIS SON, JR JOSE. PT WANTS REHAB AND IS DEPENDING ON JOSE TO TELL HIM WHERE. PT THINKS IT IS [facility]. NIDIA SIGNED FOR [facility]. IMPORTANT MESSAGE FROM MEDICARE PROVIDED AND EXPLAINED. CM MET JOSE CANELA IN THE [place], DISCUSSED REHAB SERVICES, LOCATIONS AND PROVIDERS. JOSE CHOSE THE [facility]. NIDIA SIGNED. CM NOTIFIED MAYO OF THE [facility] OF REFERRAL AT [phone]. CM FAXED REFERRAL TO THE [facility] VIA [employer] AT [phone]. CM WAITING ADMISSION DETERMINATION FROM THE [facility]. Tree Sapper: Tony Castillo DCPIA - Discharge Planning Initial Assessment Updated by [id number]: Tony Castillo on 11/15/18 5:25 pm * Is the patient Alert and Oriented? Yes * How many steps to enter\exit or inside your home? NONE * [facility] [place] * [facility] * Preadmission Environment Assisted Living * Facility Name [facility] * ADLs Partial Dependent * Partial ADLs (Assistance needed) Bathing Medication Management * Equipment Walker Wheelchair * Other Equipment NO MEDICAL EQUIPMENT PROVIDER PREFERENCE * List name and contact numbers for known caregivers / representatives who currently or will assist patient after discharge: JOSE BECKETT JR. [phone] * Verbal permission to speak to the caregivers and representatives has been obtained from the patient. Yes * Community resources currently utilized None * Please name any agencies selected above. NONE * Additional services required to return to the preadmission environment? Yes * Can the patient safely return to the preadmission environment? Yes * Has this patient been hospitalized within the prior 30 days at any hospital? No Coverage Notice Reviewer: AMINAH Castillo Notice Issued Date-Time: 11/15/2018 15:55 Notice Type: Patient Choice Letter Notice Delivered To: Family Member Relationship to Patient: Son Hr Internship Name: Delivery Method: HAND - Hand Delivered Ev Days: Prior Verbal Notification: Recipient Understood Notice: Yes Recipient Signature: Yes Med Rec Note Co-signed by Attending: Coverage Notice Comment: FREIDA MERARY Reviewer: AMINAH Castillo Notice Issued Date-Time: 11/19/2018 8:00 Notice Type: IM Discharge Notice Notice Delivered To: Patient Relationship to Patient: Hr Internship Name: Delivery Method: HAND - Hand Delivered Ev Days: Prior Verbal Notification: Recipient Understood Notice: Yes Recipient Signature: Yes Med Rec Note Co-signed by Attending: Coverage Notice Comment: Reviewer: AMINAH Castillo Notice Issued Date-Time: 11/15/2018 15:50 Notice Type: IM Discharge Notice Notice Delivered To: Patient Relationship to Patient: Hr Internship Name: Delivery Method: HAND - Hand Delivered Ev Days: Prior Verbal Notification: Recipient Understood Notice: Yes Recipient Signature: Yes Med Rec Note Co-signed by Attending: Coverage Notice Comment: [facility] IN [place] Reviewer: [id number] Castillo Notice Issued Date-Time: 11/15/2018 15:50 Notice Type: IM Discharge Notice Notice Delivered To: Patient Relationship to Patient: Hr Internship Name: Delivery Method: HAND - Hand Delivered Ev Days: Prior Verbal Notification: Recipient Understood Notice: Yes Recipient Signature: Yes Med Rec Note Co-signed by Attending: Coverage Notice Comment: Last DP export: 11/19/18 10:38 a Patient Name: NEVILLE BECKETT Page 69112 at 1214 All edits/amendments must be made on the electronic document DICTATION DATE: 11/19/184 AIRCRAFT LANDING GEAR INSPECTOR: VICKY 11/19/18 1214 RPT#: [id number] DC DATE:11/19/18 STATUS: DIS IN [facility] [address] [facility] [place] [address] END OF REPORT
== END 2018-11-19 11:23 | DRG 248 ==
LOC: D.ER 20:41 → D.M2 22:04 → OBSVTIME 22:04 → D.M2 11-15 16:38
PROVIDERS: Family Medicine; Internal Medicine Cardiovascular Disease; ADMIT Internal Medicine Nephrology; ATTEND Internal Medicine Nephrology
PROC: B2111ZZ Fluoroscopy of Multiple Coronary Arteries using Low Osmolar Contrast (ICD-10-PCS; 2018-11-18)
PROC: B2151ZZ Fluoroscopy of Left Heart using Low Osmolar Contrast (ICD-10-PCS; 2018-11-18)
PROC: 02703DZ Dilation of Coronary Artery, One Artery with Intraluminal Device, Percutaneous Approach (ICD-10-PCS; principal; 2018-11-18 10:00)
PROC: 4A023N7 Measurement of Cardiac Sampling and Pressure, Left Heart, Percutaneous Approach (ICD-10-PCS; 2018-11-18 10:00)
DX: I21.4 Non-ST elevation (NSTEMI) myocardial infarction (principal); J18.9 Pneumonia, unspecified organism; N17.9 Acute kidney failure, unspecified; R55 Syncope and collapse; I24.9 Acute ischemic heart disease, unspecified; D64.9 Anemia, unspecified; E11.9 Type 2 diabetes mellitus without complications; E03.9 Hypothyroidism, unspecified; K21.9 Gastro-esophageal reflux disease without esophagitis; I10 Essential (primary) hypertension; R00.1 Bradycardia, unspecified; I45.10 Unspecified right bundle-branch block; I25.10 Atherosclerotic heart disease of native coronary artery without angina pectoris; Z87.891 Personal history of nicotine dependence